=== PATIENT | female | born 1945 | race Caucasian/White ===

== ENCOUNTER 2017-11-22 02:40 | Outpatient (CLI) | payer MEDICARE, BC, SELFPAY ==
[2017-09-02 09:57] LABS: Abs Immature Grans 0.02 k/cumm (0.0-0.09); Absolute Basophil Count 0.03 k/cumm (0.0-0.2); Absolute Eosinophil Count 0.11 k/cumm (0.0-0.7); Absolute Lymphocyte Count 1.85 k/cumm (1.2-3.4); Absolute Neutrophil Count 2.96 k/cumm (1.2-6.7); Basophils % 0.5; HCT 36.1 % (36.0-46.0); HGB 12.3 g/dL (12.0-15.5); Immature Grans % 0.4; Lymphocytes % 33.8; Mean Corp. HGB Concentration 34.1 g/dL (32.0-36.0); Mean Corpuscular Hemoglobin 31.5 pg (27.0-33.0); Mean Corpuscular Volume 92.3 fL (80-95); Mean Platelet Volume 9.9 fL (8.0-11.0); Monocytes % 9.1; Neutrophils % 54.2; Platelet Count 227 x1000/uL (130-400); RBC 3.91 m/cumm (4.00-5.20); RBC Distribution Width 13.1 % (11.7-14.6); White Blood Cell Count 5.47 k/cumm (4.4-10.8)
[2017-09-02 11:04] LABS: ALT 26 U/L (12-78); AST 20 U/L (15-37); Albumin 3.8 g/dL (3.4-5.0); Alkaline Phosphatase 47 U/L (46-116); Anion Gap 8.6 mmol/L (3-11); BUN 21 mg/dL (7-18); Bilirubin, Total 0.5 mg/dL (0.2-1.0); CO2 27.4 mmol/L (21.0-32.0); Chloride 103 mmol/L (98-107); Cholesterol 175 mg/dL (50-200); Estimated GFR 54.66 (mL/min/1.73m2); Glucose 96 mg/dL (70-100); HDL Cholesterol 51 mg/dL (40-60); LDL CHOLESTEROL 96 mg/dL (<100); Potassium 3.9 mmol/L (3.5-5.1); Sodium 139 mmol/L (136-145); Total Protein 6.8 g/dL (6.4-8.2); Triglyceride 102 mg/dL (30-150)
== END 2017-11-22 03:00 ==
PROVIDERS: PCP Nurse Practitioner; Visit Provider Nurse Practitioner
DX: E78.4 Other hyperlipidemia (principal); I10 Essential (primary) hypertension
CPT/HCPCS: 36415; 80053; 80061; 83721; 85025

== ENCOUNTER 2017-11-22 12:10 | Outpatient (CLI) | payer MEDICARE, BC, SELFPAY ==
--- NOTE | 2017-11-22 08:15 | DI.MAMMO_ITS ---
SYMPTOM/DIAGNOSIS: SCREENING, Z12.31 MAMMOGRAMS: Mammograms were interpreted according to the usual protocol including computer analysis with CAD system, tomosynthesis and C view imaging. Comparison with prior examinations. Breast density B. No masses or microcalcifications are seen. There is nothing to suggest malignancy. IMPRESSION: Negative mammogram. Routine screening is recommended. Category 1 B. MQSA ASSESSMENT OF FINDINGS: Negative. Category 1. Patient will receive a letter notifying them of these results. BI-RADS category B. There are scattered areas of fibroglandular density.
== END 2017-11-22 12:30 ==
PROVIDERS: PCP Nurse Practitioner; Visit Provider Nurse Practitioner Women's Health
DX: Z12.31 Encounter for screening mammogram for malignant neoplasm of breast (principal)
CPT/HCPCS: 77063; 77067

== ENCOUNTER 2018-12-27 01:02 | Outpatient (CLI) | payer MEDICARE, BC, SELFPAY ==
--- NOTE | 2018-12-27 07:50 | DI.MAMMO_ITS ---
EXAM: MG MAMMO SCREENING CLINICAL HISTORY: screening, Z12.39 TECHNIQUE: Bilateral full field digital CC and MLO mammographic images were obtained with 3D tomosyn thesis and utilizing computer aided detection (CAD). COMPARISON: Available for comparison. FINDINGS: Masses/Architectural Distortion: None seen. Microcalcifications: No suspicious pleomorphic-type are seen. Skin Thickening/Nipple Retraction: None. IMPRESSION: 1. No significant interval change with no specific features of malignancy noted. 2. Unless there is more urgent need, screening mammography is recommended, as per [employer] guidelines. ACR BI-RAD Category- 1 Negative Breast Density - Category B - Scattered areas of fibroglandular density A negative radiographic report should not delay biopsy if a dominant or clinically suspicious mass is present. Up to ten percent of cancers are not identified on mammography. A negative report may reinforce clinical impression. Adenosis and dense breasts may obscure an underlying neoplasm. False positive reports average 6 to 10%.
== END 2018-12-27 01:22 ==
PROVIDERS: PCP Nurse Practitioner; Visit Provider Nurse Practitioner Women's Health
DX: Z12.31 Encounter for screening mammogram for malignant neoplasm of breast (principal)
CPT/HCPCS: 77063; 77067

== ENCOUNTER 2019-02-23 09:29 | Outpatient (CLI) | payer MEDICARE, BC, SELFPAY ==
[2019-02-23 10:57] LABS: ALT 30 U/L (14-59); AST 22 U/L (15-37); Albumin 3.9 g/dL (3.4-5.0); Alkaline Phosphatase 47 U/L (46-116); BUN 17 mg/dL (7-18); Bilirubin, Total 0.5 mg/dL (0.2-1.0); CREATININE 0.85 mg/dL (0.55-1.02); Calcium 9.4 mg/dL (8.5-10.1); Calculated LDL 68 mg/dL; Chloride 102 mmol/L (98-107); Cholesterol 152 mg/dL (<200); Glucose 81 mg/dL (74-106); HDL Cholesterol 64 mg/dL (40-60); Sodium 141 mmol/L (136-145); Total Protein 6.9 g/dL (6.4-8.2); Triglyceride 101 mg/dL (<150)
== END 2019-02-23 09:49 ==
PROVIDERS: PCP Nurse Practitioner; Visit Provider Nurse Practitioner
DX: E78.5 Hyperlipidemia, unspecified (principal); I10 Essential (primary) hypertension
CPT/HCPCS: 36415; 80053; 80061

== ENCOUNTER 2020-06-04 03:32 | Outpatient (CLI) | payer MEDICARE, BC, SELFPAY ==
[2020-06-04 08:02] LABS: HGB 12.6 g/dL (11.2-15.7); MCHC 34.1 % (32.0-36.0); MCV 93.9 fL (80-95); MPV 9.3 fL (8.0-11.0); Platelet Count 214 10^3/uL (130-400); RBC 3.94 10^6/uL (3.93-5.22); RDW 12.1 % (11.7-14.6); RDW-SD 42.1 fL
--- NOTE | 2020-06-04 08:45 | DI.MAMMO_ITS ---
EXAM: MAMMO SCREENING CLINICAL HISTORY: screening,Z12.39 TECHNIQUE: Mammograms were interpreted according to the usual protocol including computer analysis w [employer] [facility] CAD system, tomosynthesis and C-view imaging. COMPARISON: 2010 through 2018 FINDINGS: The breasts are composed of scattered fibroglandular densities, Breast Density category B. No suspicious masses or suspicious microcalcifications are seen. Vascular calcifications and scatter ed coarse, benign calcifications are again noted. No skin thickening or abnormal axillary lymph nodes are seen. There has been no significant change from prior exams. IMPRESSION: BI-RADS Category 2 - Benign Findings Yearly screening mammography is recommended. Breast Density - Category B, scattered fibroglandular densities. A negative radiographic report should not delay biopsy if a dominant or clinically suspicious mass is present. Up to ten percent of cancers are not identified on mammography. A negative report may reinforce clinical impression. Adenosis and dense breasts may obscure an underlying neoplasm. False positive reports average 6 to 10%. Patient will receive a letter notifying them of these results.
[2020-06-04 09:07] LABS: ALT 25 U/L (14-59); AST 20 U/L (15-37); Albumin 4.1 g/dL (3.4-5.0); Alkaline Phosphatase 50 U/L (46-116); Anion Gap 9.2 mmol/L (3-11); BUN 18 mg/dL (7-18); Bilirubin, Total 0.6 mg/dL (0.2-1.0); CO2 30.8 mmol/L (21.0-32.0); CREATININE 0.9 mg/dL (0.55-1.02); Calcium 9.8 mg/dL (8.5-10.1); Calculated LDL 59 mg/dL (<100); Chloride 101 mmol/L (98-107); Cholesterol 151 mg/dL (<200); Glucose 95 mg/dL (74-106); HDL Cholesterol 74 mg/dL (40-60); Potassium 4.3 mmol/L (3.5-5.1); Sodium 141 mmol/L (136-145); Total Protein 7.1 g/dL (6.4-8.2); Triglyceride 93 mg/dL (<150)
== END 2020-06-04 03:33 | disposition home or self-care (01) ==
PROVIDERS: PCP Nurse Practitioner; Visit Provider Nurse Practitioner
DX: Z12.31 Encounter for screening mammogram for malignant neoplasm of breast (principal); E78.5 Hyperlipidemia, unspecified; I10 Essential (primary) hypertension
CPT/HCPCS: 36415; 77063; 77067; 80053; 80061; 85027

== ENCOUNTER 2020-09-04 01:39 | Outpatient (CLI) | payer MEDICARE, BC, SELFPAY ==
--- NOTE | 2020-09-04 10:15 | DI.DEXA_ITS ---
Exam(s) XR DEXA BONE DENSITY W/WO DUYEN EXAM: XR DEXA BONE DENSITY W/WO DUYEN CLINICAL HISTORY: f/u 2014 M85.88 OSTEOPENIA TECHNIQUE: [employer] Horizon C densitometer COMPARISON: DX DEXA BONE DENSITY WITH DUYEN from 10/03/2014 DX DEXA BONE DENSITY WITH DUYEN from 10/03/2014 FINDINGS: Lateral view of the thoracic and lumbar spine shows no evidence of compression fractures. Bone mineral density measurements of the lumbar spine correspond to a total T-score of -0.7, in the n ormal range. Unchanged from previous. Bone mineral density measurements of the left hip correspond to a total T-score of 0.3. The femoral neck T-score is 0.1, in the normal range. 4.4 percent decrease in total hip bone density from 2015 . The left forearm bone mineral density measurements correspond to a T-score of the distal 3rd of -2.3 , in the osteopenic range. Mild but not statistically significant decrease of 2 percent. IMPRESSION: Osteopenia of the forearm. Normal bone mineral density of the lumbar spine and left hip.
== END 2020-09-04 01:59 ==
PROVIDERS: PCP Nurse Practitioner; Visit Provider Nurse Practitioner
DX: M85.832 Other specified disorders of bone density and structure, left forearm (principal)
CPT/HCPCS: 77080

== ENCOUNTER 2021-02-19 09:44 | Outpatient (CLI) | payer MEDICARE, BC, SELFPAY ==
--- NOTE | 2021-02-19 09:30 | RT.EKG_ITS ---
APPROVED REPORT Exam: Resting ECG Reason for Exam: HTN Patient Location: O HR:78 bpm ECG Measurements Heart Rate 78 AXIS MN 138 P 51 QRSd 90 QRS 6 QT 402 T 5 QTc 459 Conclusion Sinus rhythm...normal P axis, V-rate 60- 99 Left atrial enlargement...P, P'>60mS, <-0.15mV V1
== END 2021-02-19 09:45 | disposition home or self-care (01) ==
LOC: DI.KIM 09:44
PROVIDERS: PCP Nurse Practitioner; Visit Provider Nurse Practitioner
DX: I10 Essential (primary) hypertension (principal); I51.7 Cardiomegaly
CPT/HCPCS: 93010

== ENCOUNTER 2021-06-22 02:41 | Outpatient (CLI) | payer MEDICARE, SELFPAY ==
--- NOTE | 2021-06-22 06:45 | DI.MAMMO_ITS ---
Exam(s) MAMMO SCREENING EXAM: MAMMO SCREENING CLINICAL HISTORY: screening,Z12.39 TECHNIQUE: Bilateral full field digital CC and MLO mammographic images were obtained with 3D tomosyn thesis and utilizing computer aided detection (CAD). COMPARISON: Available for comparison. FINDINGS: Masses/Architectural Distortion: None seen. There is a biopsy clip in the inner right breast. Microcalcifications: No suspicious pleomorphic-type are seen. Skin Thickening/Nipple Retraction: None. IMPRESSION: 1. No significant interval change with no specific features of malignancy noted. 2. Unless there is more urgent need, screening mammography is recommended, as per [employer] guidelines. BI-RADS Category 1 - Negative Breast Density - Category B - Scattered areas of fibroglandular density Breast density category C or D implies that the patient has dense breast tissue. Dense breast tissue is very common and is not abnormal but dense breast tissue can make it harder to find cancer on a ma mmogram. Also, dense breast tissue may increase their breast cancer risk. This information about the result of the mammogram report was provided to the patient to raise their awareness. Use this report when you speak with the patient about their risks for breast cancer, which includes their family hist ory. At that time, you may recommend for more screening tests (Ultrasound or MRI) as they might be us eful based on their risk. A negative radiographic report should not delay biopsy if a dominant or clinically suspicious mass is present. Up to ten percent of cancers are not identified on mammography. A negative report may reinforce clinical impression. Adenosis and dense breasts may obscure an underlying neoplasm. False positive reports average 6 to 10%. Patient will receive a letter notifying them of these results.
== END 2021-06-22 03:01 ==
PROVIDERS: PCP Nurse Practitioner; Visit Provider Nurse Practitioner
DX: Z12.31 Encounter for screening mammogram for malignant neoplasm of breast (principal)
CPT/HCPCS: 77063; 77067

== ENCOUNTER 2021-06-22 05:10 | Outpatient (CLI) | payer MEDICARE, SELFPAY ==
[2021-06-22 10:26] LABS: ALT 32 U/L (14-59); AST 27 U/L (15-37); Albumin 4.1 g/dL (3.4-5.0); Alkaline Phosphatase 59 U/L (46-116); BUN 16 mg/dL (7-18); Bilirubin, Total 0.7 mg/dL (0.2-1.0); CREATININE 0.8 mg/dL (0.55-1.02); Calcium 9.2 mg/dL (8.5-10.1); Calculated LDL 96 mg/dL (<100); Chloride 99 mmol/L (98-107); Cholesterol 186 mg/dL (<200); Glucose 95 mg/dL (74-106); HDL Cholesterol 75 mg/dL (40-60); Potassium 3.9 mmol/L (3.5-5.1); Sodium 133 mmol/L (136-145); Total Protein 7.2 g/dL (6.4-8.2); Triglyceride 79 mg/dL (<150)
== END 2021-06-22 05:11 | disposition home or self-care (01) ==
LOC: LBO 05:10
PROVIDERS: PCP Nurse Practitioner; Visit Provider Nurse Practitioner
DX: I10 Essential (primary) hypertension (principal); E78.5 Hyperlipidemia, unspecified
CPT/HCPCS: 36415; 80053; 80061

== ENCOUNTER 2021-07-05 14:43 | Observation (INO) | payer MEDICARE, SELFPAY ==
[2021-07-05] VITALS (54 sets, daily range): BP systolic 123–185; BP diastolic 58–93; PULSE 67–153; RESP 9–22; TEMP 36.3–36.7; O2SAT 95–100
--- NOTE | 2021-07-05 14:45 | RT.EKG_ITS ---
APPROVED REPORT Exam: Resting ECG Reason for Exam: heart rate irregular Patient Location: E HR:148 bpm ECG Measurements Heart Rate 148 AXIS ME 112 P 73 QRSd 89 QRS 4 QT 300 T -77 QTc 470 Conclusion Supraventricular tachycardia...V-rate>(220-age), QRSd<120 ST elevation secondary to high heart rate Nonspecific T abnormalities, lateral leads...T <-0.10mV, I aVL V5 V6. SVT
--- NOTE | 2021-07-05 15:00 | DI.RAD_ITS ---
Exam(s) XR PORTABLE CHEST AP EXAM: XR PORTABLE CHEST AP CLINICAL HISTORY: palpitations, r/o acute disease TECHNIQUE: 2D digital imaging was performed. COMPARISON: CR XR DEXA BONE DENSITY W/WO DUYEN from 09/04/2020 FINDINGS: Exam limited by multiple leads overlying the chest. LUNGS: Clear. No pleural abnormality seen. HEART: Normal size. Mitral annular calcifications.. AORTA: Normal. BONES: Unremarkable for age. Soft tissues: Calcific density projecting at medial left lung base could represent calcified granulom a or soft tissue calcification. IMPRESSION: No acute findings. DATA REPOSITORY: RADIATION DOSE DELIVERED:
--- NOTE | 2021-07-05 15:02 | ED.GENADUL_ITS ---
Discharge Plan Disposition Patient Disposition: [facility] INPATIENT Condition: Good Discharge Details Clinical Impression: SVT (supraventricular tachycardia), Elevated troponin Admit Date/Time: 07/05/21 19:53 Admit Provider: Pablo Ma Attending Provider: Pablo Ma Primary Care Provider: Yvonne Gutierrez ED Provider: Lisa Chatterjee Discharge Data Discharge Date/Time-TO BE ENTERED AT DEPARTURE: 07/05/21 21:02 Medical Decision Making 1455 -- 76yo F presents with sensation of tachycardia and palpitations since this morning. Denies any chest pain, shortness of breath or dizziness. Blood pressure on arrival 177/91. Heart rate 140s to 150s. EKG notes SVT. Attempted modified Valsalva maneuver x 2 without response. 1530 -- patient given a total of 6 mg + 12 mg + 12 mg of adenosine IV without any response. She remains in the 150s and SVT on the monitor. She remains asymptomatic. Discussed with hospitalist team who recommends Cardizem or metoprolol IV. [facility] cardiology consulted. 1545 -- patient now converted to sinus rhythm within a few minutes of Cardizem 50 mg IV push x1. Heart rate 80s to 90s. 1600 -- discussed with [facility] cardiology -- recommend starting Cardizem ER p.o. 180 mg once daily. Recommend outpatient Zio patch and follow-up with cardiology. They recommend observation overnight for serial troponins and EKGs if her troponin is elevated but would not be surprised if her troponin is elevated due to her SVT likely occurring over 8-hour period. 1645 -- labs reviewed. Normal white blood cell count and hemoglobin. Potassium 3.3, will replete. Troponin 119. Case discussed with Dr. Nava who recommends follow-up on repeat troponin and if significantly elevated may need further discussion with cardiology. 1845 --repeat troponin 275. Repeat EKG notes a rate of 74, sinus, no STEMI. Patient has remained hemodynamically stable, heart rate 70s in sinus on the monitor. Blood pressure 146/85. Patient is agreeable with plan for admission for continued telemetry monitoring, serial troponins and EKGs. Case discussed with hospitalist who accepts patient for admission. Medical Records Medical records reviewed: Yes I reviewed the patient's medical records. Imaging Data Radiologic Study: Radiologist's impression: XR Chest Exam date and time: 07/05/2021 4:18 PM Age: 76 years old Clinical indication: Other: Palpitations, R/O acute disease TECHNIQUE: Imaging protocol: XR of the chest. Views: 1 view. COMPARISON: No relevant prior studies available. FINDINGS: Lungs: There is a 1.5 cm nodular calcific density projecting at the medial base of the left lung adjacent to the thoracic spine. The lungs are otherwise clear. There is no pulmonary vascular congestion. Pleural spaces: There are no pleural effusions present. There is no evidence of pneumothorax. Heart/Mediastinum: The cardiomediastinal silhouette is within normal limits. Bones/joints: See Lungs finding. IMPRESSION: 1. No active cardiopulmonary disease identified. 2. 1.5 cm calcific nodular density projecting at the medial base of the left lung, could represent confluence of osseous shadows versus a benign calcified granuloma. Lab Data Lab results reviewed: Yes I reviewed the patient's lab results. Labs: Laboratory Tests Range/Units 07/05/21 07/05/21 07/05/21 14:58 14:58 18:00 WBC (4.4-10.8) 10^3/uL 6.55 RBC (3.93-5.22) 10^6/uL 4.34 Hgb (11.2-15.7) g/dL 13.5 Hct (36.0-46.0) % 40.1 MCV (80-95) fL 92 MCH (27.0-33.0) pg 31.1 MCHC (32.0-36.0) % 33.7 RDW (11.7-14.6) % 11.8 Plt Count (130-400) 10^3/uL 224 MPV (8.0-11.0) fL 10.0 Immature Gran % 0.3 Neutrophils % 64.8 Lymphocytes % 23.2 Monocytes % 9.5 Eosinophils % 1.4 Basophils % 0.8 Nucleated RBC % (0.0-0.3) % 0.0 Absolute Neutrophils (1.2-6.7) 10^3/uL 4.25 Absolute Lymphocytes (1.2-3.4) 10^3/uL 1.52 Absolute Monocytes (0.1-0.8) 10^3/uL 0.62 Absolute Eosinophils (0.0-0.7) 10^3/uL 0.09 Absolute Basophils (0.0-0.2) 10^3/uL 0.05 Sodium (136-145) mmol/L 132 L Potassium (3.5-5.1) mmol/L 3.3 L Chloride (98-107) mmol/L 95 L Carbon Dioxide (21.0-32.0) mmol/L 27.6 Anion Gap (3-11) mmol/L 9.4 BUN (7-18) mg/dL 13 Creatinine (0.55-1.02) mg/dL 0.9 Estimated GFR/1.73 m2 (mL/min/1.73m2) >= 60.00 Glucose (74-106) mg/dL 151 H Calcium (8.5-10.1) mg/dL 9.4 Magnesium (1.8-2.4) mg/dL 2.1 Total Bilirubin (0.2-1.0) mg/dL 0.6 AST (15-37) U/L 24 ALT (14-59) U/L 31 Alkaline Phosphatase (46-116) U/L 55 Troponin I (<or=60) ng/L 119 H* 275 H* Total Protein (6.4-8.2) g/dL 7.7 Albumin (3.4-5.0) g/dL 4.1 ECG Data Attestation: I personally reviewed and interpreted this ECG (s) as follows: Interpretation: #1 -- Rate of 148, SVT #2 --Rate of 74, sinus, no STEMI HPI General Mode of arrival: ambulatory . Date/Time Provider Initiated Documentation: 07/05/21 14:44 . Limitations to Documentation: no limitations . Information obtained by: patient . HPI Narrative: Patient is a 76-year-old female with history of hypertension who presents with sensation of tachycardia and palpitations since this morning. Patient stated she looked at a text on her phone and felt a fast heart rate. She denies any significant stress or anxiety. She states she had a sensation of tachycardia this morning but denies any symptoms at present. She denies any chest pain, shortness of breath, fever, cough, vomiting, diarrhea or any recent illness. Related Data Home Medications Medication Instructions Recorded Confirmed calcium carbonate 250 mg-vitamin 1 ea PO DAILY 08/14/15 07/05/21 D3 3.125 mcg (125 unit) tablet (Oyster Shell + D3) aspirin 81 mg tablet,delayed 81 mg PO DAILY #100 tab 06/22/18 07/05/21 release fluocinolone 0.01 % topical 1 applic TOPICAL BID #60 ml 02/20/19 07/05/21 solution atorvastatin 20 mg tablet 20 mg PO QPM #90 tab 02/19/21 07/05/21 cholecalciferol (vitamin D3) 125 125 mcg PO DAILY 02/19/21 07/05/21 mcg (5,000 unit) capsule lisinopril 20 1 tab PO DAILY #90 tab 02/19/21 07/05/21 mg-hydrochlorothiazide 25 mg tablet potassium chloride 10 mEq 10 meq PO DAILY #90 tab 02/19/21 07/05/21 tablet,extended release (Klor-Con) diltiazem HCl 120 mg 120 mg PO HS #14 cap 07/06/21 capsule,extended release 24 hr (Cardizem CD) Previous Rx's Medication Instructions Recorded aspirin 81 mg tablet,delayed 81 mg PO DAILY #100 tab 06/22/18 release fluocinolone 0.01 % topical 1 applic TOPICAL BID #60 ml 02/20/19 solution atorvastatin 20 mg tablet 20 mg PO QPM #90 tab 02/19/21 lisinopril 20 1 tab PO DAILY #90 tab 02/19/21 mg-hydrochlorothiazide 25 mg tablet potassium chloride 10 mEq 10 meq PO DAILY #90 tab 02/19/21 tablet,extended release (Klor-Con) diltiazem HCl 120 mg 120 mg PO HS #14 cap 07/06/21 capsule,extended release 24 hr (Cardizem CD) Allergies Allergy/AdvReac Type Severity Reaction Status Date / Time No Known Allergies Allergy Verified 07/05/21 15:00 General Stated Complaint: Palpitatns ED: 2 Review of Systems All systems reviewed & are unremarkable except as noted in HPI and below Constitutional Constitutional: Denies chills, Denies excessive sweating, Denies fatigue, Denies fever(s), Denies weakness and Denies weight loss Eyes Eyes: Reports system reviewed and no additional complaints, except as documented and Denies blurry vision ENT Ears, Nose, Mouth, and Throat: Denies vertigo, Denies dizziness, Denies otalgia, Denies nasal congestion, Denies sore throat and Denies throat swelling Cardiovascular Cardiovascular: Denies chest pain, Denies syncope, Reports rapid heart rate and Denies dyspnea Respiratory Respiratory: Denies chest congestion, Denies cough, Denies pain on inspiration and Denies dyspnea Gastrointestinal Gastrointestinal: Denies abdominal pain, Denies diarrhea and Denies vomiting Genitourinary Genitourinary: Denies hematuria, Denies dysuria and Denies flank pain Musculoskeletal Musculoskeletal: Denies back pain and Denies joint swelling Integumentary/Breasts Skin/Breast: Denies lesions and Denies rash Neurologic Neurologic: Denies behavioral changes, Denies confusion, Denies vertigo, Denies dizziness, Denies syncope, Denies localized weakness and Denies weakness Psychiatric Psychiatric: Denies behavioral changes, Denies confusion and Denies depression Endocrine Endocrine: Denies excessive sweating and Denies fatigue Hematologic/Lymphatic Hematologic/Lymphatic: Denies easy bruising and Denies lymphadenopathy Allergic/Immunologic Allergic/Immunologic: Denies throat swelling PFSH All Active Problems (Updated 07/07/21 @ 00:05 by SAMMI JACOBSEN) Osteopenia of lumbar spine (Acute) Medicare annual wellness visit, subsequent (Acute) Other hyperlipidemia (Acute 06/26/05) GOAL LDL<130; 2014 risk calc 12.3%; ASA and Atorvastatin begun 08/2014 Osteopenia (Acute 10/04/14) DEXA 10/03/14 T = -2.7 L wrist, all others 0.7 or better; FRAX score: 8 phil, 0.6 hip Mitral valve regurgitation (Acute 06/04/13) mod on ECHO 06/24/10; rpt 07/03/13: mild MR, nl EF 65% Hypertension (Acute 12/29/91) Hyperplastic colonic polyp (Acute 01/02/16) dr Velazquez Other and unspecified hyperlipidemia (Acute 06/26/05) GOAL LDL<130; 2014 risk calc 12.3% Colon cancer screening (Acute) Medical History HTN (hypertension) Hx of hyperlipidemia Vitiligo (06/01/11) Surgical History Colonoscopy - IV Sedation (01/02/16) No significant past surgical history Family History Mother , heart issues at age 86. Essential hypertension Heart disease Anxiety Father , CVA at age 70. Stroke Hypertension Social History Smoking/Tobacco Use Status: Former Tobacco Use Tobacco: How many years used: 25 Second Hand Exposure: No Smoking risk assessment performed?: Yes Alcohol Intake: current Alcohol Intake frequency: 0-2 drinks per day Drug use: Never Substance use type: does not use Adopted: No Caregiver/Support person: No Foster care: No Household members: spouse Housing: house Number of Children: 2 number of grandchildren: 4 Communication Needs: Corrective Lenses Education Level: college Do you need help understanding health information?: Rarely current occupation: retired Pets and animals: No Sexually active: No Do you think of yourself as: straight/heterosexual Current gender identity: female What is your relationship status?: living with partner How often do you talk on the phone with friends or family?: twice per week How often do you get together with friends or relatives?: three or more times per week Do you belong to any clubs or organized social groups?: yes Panel score (0-1 are the most socially isolated patients): 3 What type of physical activity do you participate in: walking Duration: 15-30 minutes/day Frequency: 5-6 times per week Padmini/Buddhism: Evangelical Seatbelt use: always Drive intox or ride w/intox delivery truck driver heavy: No Working smoke detector in home: Yes Fire extinguisher in home: Yes Carbon monox detector in home: Yes Do you feel safe at home: Yes Do you feel safe in your relationship?: Yes Exam Const General: cooperative Orientation: alert, awake and oriented x3 HENMT Head: normal to inspection Ears: hearing grossly normal bilaterally, external ears normal and TM's normal bilaterally General nose exam: external nose normal Face and sinus: normal facial exam Mouth: oral mucosae normal Teeth and gingiva: dentition normal Throat: posterior oropharynx normal Eyes General: appearance normal, both eyes and all related structures Eyelids: eyelids normal Pupils: PERRL EOM: EOM intact bilaterally Neck Neck: normal visual inspection Lymphatic: no lymphadenopathy noted Chest Chest: normal inspection of the chest Resp Effort & Inspection: normal respiratory effort and able to speak in complete sentences Auscultation: clear to auscultation bilaterally Cardio Rate: tachycardic Rhythm: regular rhythm GI Inspection: normal to inspection Palpation: soft, not firm, no guarding, no hepatosplenomegaly, no masses and nontender Auscultation: normal bowel sounds Skin General skin exam: no rashes or lesions noted Neuro General: patient alert and patient awake Cognition: normal cognition Speech: speech normal Gait: normal gait Motor: muscle tone normal throughout Sensory Exam: no sensory deficits noted Extrem General: normal to inspection, full ROM and capillary refill normal Psych Appearance: grossly normal Mental Status: mental status grossly normal Speech and Movement: speech and movement normal Affect: normal affect Thought Process: normal Course Vital Signs Vital signs: Vital Signs Temperature 98.1 F 07/05/21 14:53 Pulse 149 H 07/05/21 14:53 Respiratory Rate 16 07/05/21 14:53 Blood Pressure 177/91 H 07/05/21 14:53 Pulse Oximetry 98 07/05/21 14:53 Temperature 98.1 F 07/05/21 14:53 Temperature Source Temporal Artery Scan 07/05/21 14:53 Pulse 149 H 07/05/21 14:53 Respiratory Rate 16 07/05/21 14:53 Blood Pressure 177/91 H 07/05/21 14:53 Blood Pressure Position Supine 07/05/21 14:53 Pulse Oximetry 98 07/05/21 14:53 Pain Level 0 07/05/21 14:53
[2021-07-05] MEDS: Adenosine 6 MG/2 ML VIAL IVP (15:27)
[2021-07-05] MEDS: Adenosine 6 MG/2 ML VIAL 12 MG IVP ×2 (15:30→15:37)
[2021-07-05] MEDS: dilTIAZem 25 MG/5 ML VIAL 15 MG IVP (15:49)
[2021-07-05 16:16] LABS: Abs Immature Grans 0.02 10^3/uL (0.0-0.06); Absolute Basophil Count 0.05 10^3/uL (0.0-0.2); Absolute Eosinophil Count 0.09 10^3/uL (0.0-0.7); Absolute Lymphocyte Count 1.52 10^3/uL (1.2-3.4); Absolute Monocyte Count 0.62 10^3/uL (0.1-0.8); Absolute Neutrophil Count 4.25 10^3/uL (1.2-6.7); Basophils % 0.8; Eosinophils % 1.4; HCT 40.1 % (36.0-46.0); HGB 13.5 g/dL (11.2-15.7); Immature Grans % 0.3; Lymphocytes % 23.2; MCH 31.1 pg (27.0-33.0); MCHC 33.7 % (32.0-36.0); MCV 92 fL (80-95); Monocytes % 9.5; Neutrophils % 64.8; Platelet Count 224 10^3/uL (130-400); RBC 4.34 10^6/uL (3.93-5.22); RDW 11.8 % (11.7-14.6); WBC 6.55 10^3/uL (4.4-10.8)
[2021-07-05 16:36] LABS: ALT 31 U/L (14-59); AST 24 U/L (15-37); Albumin 4.1 g/dL (3.4-5.0); Alkaline Phosphatase 55 U/L (46-116); Anion Gap 9.4 mmol/L (3-11); BUN 13 mg/dL (7-18); Bilirubin, Total 0.6 mg/dL (0.2-1.0); CO2 27.6 mmol/L (21.0-32.0); CREATININE 0.9 mg/dL (0.55-1.02); Calcium 9.4 mg/dL (8.5-10.1); Chloride 95 mmol/L (98-107); Glucose 151 mg/dL (74-106); Magnesium 2.1 mg/dL (1.8-2.4); Potassium 3.3 mmol/L (3.5-5.1); Sodium 132 mmol/L (136-145); Total Protein 7.7 g/dL (6.4-8.2)
[2021-07-05 16:47] LABS: Troponin I 119 ng/L (<or=60)
[2021-07-05] MEDS: Potassium Chloride 20 MEQ TABCR PO (16:53)
--- NOTE | 2021-07-05 17:10 | DI.VRAD_ITS ---
PROCEDURE INFORMATION: Exam: XR Chest Exam date and time: 07/05/2021 4:18 PM Age: 76 years old Clinical indication: Other: Palpitations, R/O acute disease TECHNIQUE: Imaging protocol: XR of the chest. Views: 1 view. COMPARISON: No relevant prior studies available. FINDINGS: Lungs: There is a 1.5 cm nodular calcific density projecting at the medial base of the left lung adjacent to the thoracic spine. The lungs are otherwise clear. There is no pulmonary vascular congestion. Pleural spaces: There are no pleural effusions present. There is no evidence of pneumothorax. Heart/Mediastinum: The cardiomediastinal silhouette is within normal limits. Bones/joints: See Lungs finding. IMPRESSION: 1. No active cardiopulmonary disease identified. 2. 1.5 cm calcific nodular density projecting at the medial base of the left lung, could represent confluence of osseous shadows versus a benign calcified granuloma. Dictated and Authenticated by: Johnny Boston MD. Ordering:PEDRITO Gonzalez MD
--- NOTE | 2021-07-05 18:00 | RT.EKG_ITS ---
APPROVED REPORT Exam: Resting ECG Reason for Exam: palpitations Patient Location: E HR:74 bpm ECG Measurements Heart Rate 74 AXIS WY 157 P 46 QRSd 80 QRS 0 QT 412 T 8 QTc 458 Conclusion Sinus rhythm...normal P axis, V-rate 60- 99 Probable left atrial enlargement...P >50mS, <-0.10mV V1. Sinus. No STEMI. I have reviewed and interpreted ECG and agree with software generated interpretation.
[2021-07-05 18:41] LABS: Troponin I 275 ng/L (<or=60)
--- NOTE | 2021-07-05 19:33 | HPE_ITS ---
Date of service: 07/05/21 Time of Service: 19:33 Assessment and Plan Assessment and plan (1) SVT (supraventricular tachycardia): Status: Chronic Assessment and plan: PSVT. No definite precipitant at present, though mild hypokalemia may have played a role, in setting of known structural heart disease. Will begin Cardizem 180 CD (hold other hypertensives until we see how she responds) and trend trops. No doubt this is demand ischemia. Will also update ECHO and check TSH. Reveiwed ADs, requests Full Code History of Present Illness History of Present Illness Chief Complaint: palpitations Narrative: 76 female re[orts sudden onset palpitations this morning. No associated CP or SOB. Took pulse, in 130s on home BP monitor. Reesolved after some unspecified period, but repeated pulse checks through the day showed range 140-150, though otherwise asymptomatic, but decided to come to ER. In ER, SVT 150 noted. No effect with Adenosine x 3, then converted with 50 IV Cardizem. Trop 119 the 275. reviewed with Cardiology, presumed demand ischemia, advised trend trops and begin oral Cardizem. K 3.3 noted, given 20 PO. On diuretic for HTN, on chronic K supplementation. Limited caffeine, one drink per night. Has never had thyroid testing to her knowledge. Does have h/o mitral regurgitation,last ECHO 2013 2+ MR. Reports many years of spells similar to today's, but brief, and has never documented tachycardia, just has a funny stress feeling in chest. Further, reports COVID booster 2 days ago. Review of Systems Narrative: per HPI PFSH All Active Problems (Updated 07/05/21 @ 19:44 by Lisa Chatterjee DO) SVT (supraventricular tachycardia) (Chronic) Elevated troponin (Acute) Osteopenia of lumbar spine (Acute) Medicare annual wellness visit, subsequent (Acute) Other hyperlipidemia (Acute 06/26/05) GOAL LDL<130; 2015 risk calc 12.3%; ASA and Atorvastatin begun 08/2014 Osteopenia (Acute 10/04/14) DEXA 10/03/14 T = -2.7 L wrist, all others 0.7 or better; FRAX score: 8 phil, 0.6 hip Mitral valve regurgitation (Acute 06/04/13) mod on ECHO 06/24/10; rpt 07/03/13: mild MR, nl EF 65% Hypertension (Acute 12/29/91) Hyperplastic colonic polyp (Acute 01/02/16) dr Velazquez Other and unspecified hyperlipidemia (Acute 06/26/05) GOAL LDL<130; 2015 risk calc 12.3% Colon cancer screening (Acute) Medical History HTN (hypertension) Hx of hyperlipidemia Vitiligo (06/01/11) Surgical History Colonoscopy - IV Sedation (01/02/16) No significant past surgical history Family History Mother , heart issues at age 86. Essential hypertension Heart disease Anxiety Father , CVA at age 70. Stroke Hypertension Social History Smoking/Tobacco Use Status: Former Tobacco Use Tobacco: How many years used: 25 Second Hand Exposure: No Smoking risk assessment performed?: Yes Alcohol Intake: current Alcohol Intake frequency: 0-2 drinks per day Drug use: Never Substance use type: does not use Adopted: No Caregiver/Support person: No Foster care: No Household members: spouse Housing: house Number of Children: 2 number of grandchildren: 4 Communication Needs: Corrective Lenses Education Level: college Do you need help understanding health information?: Rarely current occupation: retired Pets and animals: No Sexually active: No Do you think of yourself as: straight/heterosexual Current gender identity: female What is your relationship status?: living with partner How often do you talk on the phone with friends or family?: twice per week How often do you get together with friends or relatives?: three or more times per week Do you belong to any clubs or organized social groups?: yes Panel score (0-1 are the most socially isolated patients): 3 What type of physical activity do you participate in: walking Duration: 15-30 minutes/day Frequency: 5-6 times per week Padmini/Alevism: Voodoo Seatbelt use: always Drive intox or ride w/intox drivers license examiner: No Working smoke detector in home: Yes Fire extinguisher in home: Yes Carbon monox detector in home: Yes Do you feel safe at home: Yes Do you feel safe in your relationship?: Yes Meds Allergies and Home Medications Allergies Allergy/AdvReac Type Severity Reaction Status Date / Time No Known Allergies Allergy Verified 07/05/21 15:00 Home Medications Medication Instructions Recorded Confirmed Type calcium carbonate 250 mg-vitamin 1 ea PO DAILY 08/14/15 07/05/21 History D3 3.125 mcg (125 unit) tablet (Oyster Shell + D3) aspirin 81 mg tablet,delayed 81 mg PO DAILY #100 tab 06/22/18 07/05/21 Rx release fluocinolone 0.01 % topical 1 applic TOPICAL BID #60 ml 02/20/19 07/05/21 Rx solution atorvastatin 20 mg tablet 20 mg PO QPM #90 tab 02/19/21 07/05/21 Rx cholecalciferol (vitamin D3) 125 125 mcg PO DAILY 02/19/21 07/05/21 History mcg (5,000 unit) capsule lisinopril 20 1 tab PO DAILY #90 tab 02/19/21 07/05/21 Rx mg-hydrochlorothiazide 25 mg tablet potassium chloride 10 mEq 10 meq PO DAILY #90 tab 02/19/21 07/05/21 Rx tablet,extended release (Klor-Con) Exam Narrative Exam Narrative: 146/85, 71, 36.7, 18, 96% RA. HEENT atraumatic; neck supple; JVP approx 4 cm. Lungs clear;heart RRR 2/6 sys murmur best LSB with radiation to jugular notch; abdomen soft and NT; extremities w/o edema, pulse 2+/=; neuro Ox43, lucid, moves all 4s Results Labs Result diagrams: 07/05/21 14:58 07/05/21 14:58 Labs: Laboratory Results - last 24 hr 07/05/21 07/05/21 07/05/21 14:58 14:58 18:00 WBC 6.55 RBC 4.34 Hgb 13.5 Hct 40.1 MCV 92 MCH 31.1 MCHC 33.7 RDW 11.8 Plt Count 224 MPV 10.0 Immature Gran % 0.3 Neutrophils % 64.8 Lymphocytes % 23.2 Monocytes % 9.5 Eosinophils % 1.4 Basophils % 0.8 Nucleated RBC % 0.0 Absolute Neutrophils 4.25 Absolute Lymphocytes 1.52 Absolute Monocytes 0.62 Absolute Eosinophils 0.09 Absolute Basophils 0.05 Sodium 132 L Potassium 3.3 L Chloride 95 L Carbon Dioxide 27.6 Anion Gap 9.4 BUN 13 Creatinine 0.9 Estimated GFR/1.73 m2 >= 60.00 Glucose 151 H Calcium 9.4 Magnesium 2.1 Total Bilirubin 0.6 AST 24 ALT 31 Alkaline Phosphatase 55 Troponin I 119 H* 275 H* Total Protein 7.7 Albumin 4.1 Last Vital Signs Temp 36.7 C 07/05/21 14:53 Pulse 71 07/05/21 19:16 Resp 18 07/05/21 19:16 BP 146/85 H 07/05/21 19:16 Pulse Ox 96 07/05/21 19:16 PAWSS Have you Been Recently Intoxicated or Drunk Within the Last 30 days?: No Have you Ever Experienced Previous Episodes of Alcohol Withdrawal?: No Have you ever Experienced Withdrawal Seizures?: No Have you ever Experienced Delirium Tremens(DT)s?: No Have you ever undergone Alcohol Rehabilitation Treatment (i.e, inpt ot outpatient treatment programs)?: No Have you ever Experienced Blackouts?: No Have you ever Combined Alcohol with other Downers within the last 90 days?: No Have you ever Combined Alcohol with any other Substance of Abuse during the last 90 days?: No Positive Blood Alcohol level on Presentation? [PCS.BAL]: No Evidence of Increased Autonomic Activity (i.e. HR>120, tremor, sweating, agitation, nausea)?: No Result: 0
[2021-07-05 20:27] LABS: Source Nasal/Nares
[2021-07-05] MEDS: dilTIAZem CD 180 MG CAPCR PO (21:16)
[2021-07-05 21:23] LABS: COVID-19 PCR Negative (Negative)
[2021-07-05 21:24] LABS: Troponin I 305 ng/L (<or=60)
[2021-07-06] VITALS: PULSE 68
--- NOTE | 2021-07-06 | DI.US_ITS ---
APPROVED REPORT EXAM: Comprehensive 2D, Doppler, and color-flow Echocardiogram Patient Location: In-Patient Room/Bed: [facility] Checkerer Hand: Zakia Condon RDCS (AE) Indications: PSVT, Mitral Regurgitation Other Information Study Quality: Adequate Conclusion Normal left ventricular wall thickness and chamber size. Estimated ejection fraction is 60 to 65%. Wall motion is normal The right ventricle is normal in size and systolic function Both atria are normal in size Aortic valve is calcified with mild regurgitation. No aortic stenosis Mitral annular calcification. Mild to moderate mitral regurgitation Normal tricuspid valve with mild to moderate regurgitation. Estimated right ventricular systolic pre ssure is 29 mmHg Mildly dilated ascending aorta measuring 3.46 cm Wall motion Left Ventricle The left ventricle is normal size. The left ventricular systolic function is normal. The left ventric ular ejection fraction is within the normal range. There is normal left ventricular wall thickness. T here is normal LV segmental wall motion. There is no ventricular septal defect visualized. LVEF is 60 -65%. Right Ventricle The right ventricle is normal size. The right ventricular systolic function is normal. The RVSP is 29 .4mmHg. Atria The left atrium size is normal. The right atrium size is normal. The interatrial septum is intact wit h no evidence for an atrial septal defect. Aortic Valve Aortic valve is calcified. No hemodynamically significant valvular aortic stenosis. Mild aortic regur gitation. Mitral Valve Moderate mitral annular calcification. No evidence of mitral valve stenosis. Mild to moderate mitral regurgitation. Tricuspid Valve The tricuspid valve is normal in structure. There is no tricuspid valve stenosis. Mild to moderate tr icuspid regurgitation. Pulmonic Valve The pulmonary valve is normal in structure. There is no pulmonic valvular stenosis. Trace pulmonic re gurgitation. Great Vessels The aortic root is normal in size. The ascending aorta is mildly dilated. Aortic arch is not well vis ualized. IVC is normal in size and collapses >50% with inspiration. Pericardium There is no pericardial effusion. 2D Dimensions IVSD d PLAX 0.96 cm F: 0.6-1.0 LV Vol A2C d MOD 59.3 mL LVPW d PLAX 0.98 cm F: 0.6 - 1.0 LV Vol A4C d MOD 63.8 mL LVID d PLAX 4.03 cm F: 3.8 - 5.2 LA vol/ BSA A2C s A-L 34.3 mL/m2 LVDs 2.55 cm F: 2.2 - 3.5 LA vol/ BSA A4C s A-L 20.3 mL/m2 Ao Root d 2.52 cm F: 2.7 - 3.3 LA Vol/ BSA Biplane s A-L 28.7 mL/m2 RA Area A4C 13.11 cm2 LA Area A4C s MOD 13.52 cm2 RA Vol/ BSA A4C s A-L 19.4 mL/m2 LA Area A2C s MOD 19.13 cm2 Ao Asc Diam d 3.46 cm F: 2.3 - 3.1 LV EF A4C MOD 60.0 % LV EF Teichholz 66.9 % LV EF A2C MOD 65.7 % LVEF (Oakes's) 64.73 % F: 54 - 74 LV EF Biplane MOD 64.7 % LV Volume 51.53 mL F: 46 - 106 SV 42.50 mL LV Volume Index 29.44 mL/m2 F: 29 - 61 SV Index 24.21 mL/m2 LV Vol Biplane MOD 65.7 mL FS 36.55 % M-Mode TAPSE 2.39 cm (M/F) >1.7 LV Diastology MV E' medial 0.096 (>0.07 m/s) E/A Ratio 0.8 LV E/e MED 13.20 (<14) MV E Vmax 1.27 (0.4-1.3 m/s) MV E' lateral 0.075 (>0.1 m/s) MV A Vmax 1.55 (0.4-1.3 m/s) LV E/e LAT 16.95 (<14) MV E/A Ratio 0.82 MV E/E' medial 13.22 MV E/E' lateral 16.96 Aortic Valve LVOT Area 2.84 cm2 AoV Area Vmax 1.79 cm2 LVOT Vmax 1.28 m/s AoV Area/ BSA (Vmax) 1.02 cm2/m2 LVOT Mean Stefano. 0.74 m/s DONALD Mean Stefano. 1.57 cm2 LVOT Peak Grad 6.5 mmHg DONALD Mean Stefano. Index 0.89 cm2/m2 LVOT Mean Grad 2.7 mmHg AR DT 1538 msec LVOT VTI 0.306 m AR PHT 446 msec LVOT Diam s 1.90 cm AoV Vmax 2.03 m/s Velocity Ratio 0.63 AoV Mean Stefano. 1.34 m/s AoV Peak Grad 16.5 mmHg LVOT SV 87.16 mL AoV Mean Grad 8.4 mmHg AoV VTI 0.481 m AoV Area VTI 1.81 cm2 AoV Area/ BSA (VTI) 1.03 cm/m2 Mitral Valve MV DT 282 (160-240 msec) MR Vmax 4.79 m/s MV PHT 82 msec MR VTI 1.606 m MV Area PHT 2.69 cm2 MR Peak Grad 91.8 mmHg MV VTI 0.642 m MR Mean Grad 58.0 mmHg MV VTI Annulus 0.652 m MV Area VTI 1.38 (4.0-6.0 cm2) Pulmonary Valve PV Vmax 1.19 (0.5-1.5 m/s) RVOT Peak Gr. 2.52 mmHg PV Peak Grad 5.6 mmHg RVOT Mean Gr. 1.40 mmHg PV Mean Grad 3.0 mmHg RVOT VTI 0.190 m PV VTI 0.259 m RVOT Vmax 0.79 m/s Tricuspid Valve TR Peak Grad 26.4 mmHg TR Vmax 2.57 m/s RA Pressure 3.00 mmHg RVSP (TR) 29.4 mmHg
[2021-07-06 03:20] VITALS: BP 96/58; PULSE 63; RESP 18; TEMP 36.6; O2SAT 95
[2021-07-06 07:54] LABS: Potassium 3.5 mmol/L (3.5-5.1)
[2021-07-06 08:12] LABS: Troponin I 222 ng/L (<or=60)
[2021-07-06] MEDS: Aspirin E.C. 81 MG TABEC PO (08:46)
[2021-07-06 08:49] VITALS: BP 148/83; PULSE 66; RESP 18; TEMP 36.2; O2SAT 99
[2021-07-06 08:53] VITALS: PULSE 67
--- NOTE | 2021-07-06 09:20 | PDOC.CMIN ---
- If Service Date Differs Date of service: 07/06/21 Time of Service: 09:20 Care Management Initial Assess REASON FOR HOSPITALIZATION:: PSVT PAST MEDICAL HISTORY/PAST SURGICAL HISTORY:: All Active Problems. SVT (supraventricular tachycardia) (Chronic). Elevated troponin (Acute). Osteopenia of lumbar spine (Acute). Medicare annual wellness visit, subsequent (Acute). Other hyperlipidemia (Acute 06/26/05). GOAL LDL<130; 2014 risk calc 12.3%; ASA and Atorvastatin begun 08/2014. Osteopenia (Acute 10/04/14). DEXA 10/03/14 T = -2.7 L wrist, all others 0.7 or better; FRAX score: 8 phil, 0.6 hip. Mitral valve regurgitation (Acute 06/04/13). mod on ECHO 06/24/10; rpt 07/03/13: mild MR, nl EF 65%. Hypertension (Acute 12/29/91). Hyperplastic colonic polyp (Acute 01/02/16). dr Velazquez. Other and unspecified hyperlipidemia (Acute 06/26/05). GOAL LDL<130; 2014 risk calc 12.3%. Colon cancer screening (Acute). Medical History. HTN (hypertension). Hx of hyperlipidemia. Vitiligo (06/01/11). Surgical History. Colonoscopy - IV Sedation (01/02/16). No significant past surgical history PREVIOUS FUNCTIONAL STATUS/SOCIAL/FAMILY SUPPORTS:: Nessa lives in [place] with her , Carlo. She is a retired teacher, who enjoys volunteering to keep herself busy. She has two children and four grand children. She is independent at baseline, and still drives, although not in the dark. CURRENT FUNCTIONAL STATUS:: Nessa was sitting up in bed when CM met with her. She was pleasant and engaged in conversation. She stated that the DRAPERY AND UPHOLSTERY MEASURER met with her and let her know that she would likely be discharging home after her Echo is read. She stated that she feels ready for discharge, and doesn't anticipate the need for any services. CM will continue to follow. ADVANCE DIRECTIVES:: On file. , Carlo, is [facility]. Has patient been provided with info about the portal/API?: Yes Did the patient sign up for the portal?: No CODE STATUS:: Full Code INSURANCE COVERAGE / FINANCIAL ISSUES:: Blue cross MCR advantage/ MCR/ BCBS CURRENT HOME/COMMUNITY SERVICES/EQUIPMENT:: No current services or equipment. PRIMARY CARE PHYSICIAN:: Yvonne Gutierrez POTENTIAL DISCHARGE NEEDS:: Evaluations for further needs, follow up appointments. PATIENT/FAMILY EDUCATION NEEDS:: Review discharge instructions and limitations, discussion of self care needs. ANTICIPATED BARRIERS TO DISCHARGE:: None identified. TRANSPORTATION:: Via private vehicle by her family. PLAN:: Anticipate Nessa will return home when medically cleared. Her will drive her home via private vehicle. She will follow up with her PCP and discharge plan of care. CM will continue to follow.
[2021-07-06 11:50] VITALS: BP 146/79; PULSE 67; RESP 18; TEMP 36.2; O2SAT 100
--- NOTE | 2021-07-06 12:22 | W.PM.DS.N ---
Date of service: 07/06/21 Time of Service: 12:23 DS: Diagnosis Discharge Diagnosis (1) SVT (supraventricular tachycardia): Start date: 07/06/21 Start time: 12:24 Status: Chronic Asessment and Plan: patient was admitted on telemetry to /s after receiving Adenosine x 3, then converted with 50 IV Cardizem. Trop 119 the 275. reviewed with Cardiology, presumed demand ischemia, advised trend trops and begin oral Cardizem. She denies CP doing well. continues to be NSR will be discharged home on 30 cardiac event recorder cardizem 120 She will need to be connected with Dr. 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 Recommend NPI will defer to cardology Echo as reads EF 60-65 percent RSVP 29, left atrium borderline dilated, aortic valve calcified. Moderate mitral annular calcification. No evidence of mitral valve stenosis. Mild to moderate mitral regurgitation. Therefore she is being discharged home on a 30 day cardiac event recorder. Discharge Plan Disposition Patient Disposition: HOME Condition: Good Discharge Details Reason For Visit: PSVT Admit Date/Time: 07/05/21 19:53 Admit Provider: Pablo Ma Attending Provider: Pablo Ma Primary Care Provider: Yvonne Gutierrez Hospital Course Hospital Course: 76 female admitted with sudden onset palpitations morning of admission. No associated CP or SOB. Pulse in the ED was in 130s on home BP monitor. Resolved after some unspecified period, but repeated pulse checks through the day showed range 140-150, though otherwise asymptomatic, but decided to come to ER. In ER, SVT was 150 noted. No effect with Adenosine x 3, then converted with 50 IV Cardizem. Trop 119 the 275. reviewed with Cardiology, presumed demand ischemia, advised trend trops and begin oral Cardizem. She did potassium supplementation while here. K now normal. Trops trending down. Nos CP or SOB. Echo done (see above). Recommend NPI will defer to PCP. 30 day event recorder start on 120 cardizem at night. Follow up with cardiology and PCP. Home Meds and New Rx's Prescriptions: New diltiazem HCl [Cardizem CD] 120 mg capsule,extended release 24hr 120 mg PO HS Qty: 14 0RF Continued fluocinolone 0.01 % solution 1 applic Topical BID Qty: 60 6RF Rx Instructions: TO [employer]RHE[employer]ES[employer] EARS cholecalciferol (vitamin D3) 125 mcg (5,000 unit) capsule 125 mcg PO DAILY 0RF atorvastatin 20 mg tablet 20 mg PO QPM Qty: 90 3RF lisinopril-hydrochlorothiazide 20-25 mg tablet 1 tab PO DAILY Qty: 90 3RF Rx Instructions: to lower blood pressure potassium chloride [Klor-Con 10] 10 mEq tablet extended release 10 meq PO DAILY Qty: 90 3RF Rx Instructions: potassium replacement calcium carbonate-vitamin D3 [Oyster Shell + D3] 1 EACH tablet 1 ea PO DAILY 0RF aspirin 81 mg tablet,delayed release (DR/EC) 81 mg PO DAILY Qty: 100 3RF Rx Instructions: for prevention of vascular events Discharge Instructions Instructions: Supraventricular Tachycardia (DC) Additional Instructions: Follow up with cardiology Follow up with PCP in 1-2 weeks Take cardizem at night for Heart rate control Chest xray revealed 1.5 cm nodular calcific density projecting at the medial base of the left lung adjacent to the thoracic spine, this should be further followed up as an outpatient Stand Alone Forms: Nursing Discharge Form Referrals: Taryn Rice MD [ [facility] STAFF PHYSICIAN] - (Office will call you with appointment) Yvonne Gutierrez NP [Primary Care Provider] - 07/20/21 9:45 am Activity:: Activity as Tolerated Equipment/Supplies:: No Equipment Needed Diet:: As Tolerated Discharge Orders Discharge Orders: Discharge Order (Routine); Ordered 07/06/21 Ordered By: Yumiko Billings Other Ambulatory Orders: Cardiac Event Recorder (Routine) Timeframe: 1 Month Facility: [facility] - Location: Respiratory Therapy Ordered By: Yumiko Billings DS: Summary Time Spent with Patient providing and/or coordinating discharge services: Greater than 30 minutes Status at Discharge Functional status at discharge: independent ambulation Overall status at discharge: patient is back to baseline Mental Status: mental status grossly normal Speech and Movement: speech and movement normal Mood: congruent mood Affect: normal affect Exam Const General: cooperative, comfortable and no acute distress Orientation: alert, awake and oriented x3 Eyes Eyelids: eyelids normal Pupils: PERRL EOM: EOM intact bilaterally Neck Neck: normal visual inspection and no JVD Lymphatic: no lymphadenopathy noted Resp Effort & Inspection: normal respiratory effort Auscultation: clear to auscultation bilaterally Cardio Jugular venous pressure: no JVD Rhythm: regular rhythm Heart Sounds: S1 normal GI Auscultation: normal bowel sounds Skin General skin exam: no rashes or lesions noted Neuro General: patient alert, patient awake and patient oriented x3 Cognition: normal cognition Speech: speech normal Gait: normal gait Extrem General: normal to inspection, full ROM and no clubbing, cyanosis or edema Psych Mental Status: mental status grossly normal Speech and Movement: speech and movement normal Mood: congruent mood Affect: normal affect DS: Data Vitals/I&O Vitals and I&O: Vital Signs Temperature 36.2 C L 07/06/21 11:50 Temperature Source Tympanic 07/06/21 11:50 Pulse 67 07/06/21 11:50 Pulse Rhythm Regular 07/06/21 08:40 Pulse 74 07/05/21 20:01 Respiratory Rate 18 07/06/21 11:50 Respiratory Effort Non-Labored 07/06/21 08:40 Respiratory Depth Normal 07/06/21 08:40 Respiratory Pattern Normal 07/06/21 08:40 Blood Pressure 146/79 H 07/06/21 11:50 Blood Pressure Mean 106 07/05/21 20:01 Blood Pressure Position Supine 07/05/21 14:53 Pulse Oximetry 100 07/06/21 11:50 Oxygen Delivery Method Room Air 07/06/21 11:50 Oxygen Flow Rate 0 07/06/21 11:50 Pain Level 0 07/06/21 11:50 Comment 07/06/21 03:20 Intake & Output 07/05/21 07/06/21 07/06/21 23:59 11:59 23:59 Output Total 400 / 850 450 / 850 Balance -400 / -850 -450 / -850 Weight 68.6 kg Output: Urine 400 / 850 450 / 850 Other: Urine Color Yellow Yellow Urine Appearance Clear Clear Urine Odor Normal None Voiding Methods Toilet Toilet Data Completed and Pending Completed studies during hospitalization [Text1]: FINDINGS: Exam limited by multiple leads overlying the chest. LUNGS: Clear. No pleural abnormality seen. HEART: Normal size.? Mitral annular calcifications.. AORTA: Normal. BONES: Unremarkable for age.? Soft tissues: Calcific density projecting at medial left lung base could represent calcified granuloma or soft tissue calcification. IMPRESSION: No acute? findings. FINDINGS: Lungs: There is a 1.5 cm nodular calcific density projecting at the medial base of the left lung adjacent to the thoracic spine. The lungs are otherwise clear. There is no pulmonary vascular congestion. Pleural spaces: There are no pleural effusions present. There is no evidence of pneumothorax. Heart/Mediastinum: The cardiomediastinal silhouette is within normal limits. Bones/joints: See Lungs finding. IMPRESSION: 1. No active cardiopulmonary disease identified. 2. 1.5 cm calcific nodular density projecting at the medial base of the left lung, could represent confluence of osseous shadows versus a benign calcified granuloma. Labs on day of discharge: Labs from last 24 hours 07/06/21 07/06/21 07/05/21 06:18 06:18 20:58 WBC RBC Hgb Hct MCV MCH MCHC RDW Plt Count MPV Immature Gran % Neutrophils % Lymphocytes % Monocytes % Eosinophils % Basophils % Nucleated RBC % Absolute Neutrophils Absolute Lymphocytes Absolute Monocytes Absolute Eosinophils Absolute Basophils Sodium Potassium 3.5 Chloride Carbon Dioxide Anion Gap BUN Creatinine Estimated GFR/1.73 m2 Glucose Calcium Magnesium Total Bilirubin AST ALT Alkaline Phosphatase Troponin I 222 H* 305 H* Total Protein Albumin TSH COVID-19 Source SARS-CoV-2 (PCR) 07/05/21 07/05/21 07/05/21 20:25 18:00 18:00 WBC RBC Hgb Hct MCV MCH MCHC RDW Plt Count MPV Immature Gran % Neutrophils % Lymphocytes % Monocytes % Eosinophils % Basophils % Nucleated RBC % Absolute Neutrophils Absolute Lymphocytes Absolute Monocytes Absolute Eosinophils Absolute Basophils Sodium Potassium Chloride Carbon Dioxide Anion Gap BUN Creatinine Estimated GFR/1.73 m2 Glucose Calcium Magnesium Total Bilirubin AST ALT Alkaline Phosphatase Troponin I 275 H* Total Protein Albumin TSH 1.60 COVID-19 Source Nasal/Nares SARS-CoV-2 (PCR) Negative 07/05/21 07/05/21 14:58 14:58 WBC 6.55 RBC 4.34 Hgb 13.5 Hct 40.1 MCV 92 MCH 31.1 MCHC 33.7 RDW 11.8 Plt Count 224 MPV 10.0 Immature Gran % 0.3 Neutrophils % 64.8 Lymphocytes % 23.2 Monocytes % 9.5 Eosinophils % 1.4 Basophils % 0.8 Nucleated RBC % 0.0 Absolute Neutrophils 4.25 Absolute Lymphocytes 1.52 Absolute Monocytes 0.62 Absolute Eosinophils 0.09 Absolute Basophils 0.05 Sodium 132 L Potassium 3.3 L Chloride 95 L Carbon Dioxide 27.6 Anion Gap 9.4 BUN 13 Creatinine 0.9 Estimated GFR/1.73 m2 >= 60.00 Glucose 151 H Calcium 9.4 Magnesium 2.1 Total Bilirubin 0.6 AST 24 ALT 31 Alkaline Phosphatase 55 Troponin I 119 H* Total Protein 7.7 Albumin 4.1 TSH COVID-19 Source SARS-CoV-2 (PCR) PFSH All Active Problems SVT (supraventricular tachycardia) (Chronic) Elevated troponin (Acute) Osteopenia of lumbar spine (Acute) Medicare annual wellness visit, subsequent (Acute) Other hyperlipidemia (Acute 06/26/05) GOAL LDL<130; 2014 risk calc 12.3%; ASA and Atorvastatin begun 08/2014 Osteopenia (Acute 10/04/14) DEXA 10/03/14 T = -2.7 L wrist, all others 0.7 or better; FRAX score: 8 phil, 0.6 hip Mitral valve regurgitation (Acute 06/04/13) mod on ECHO 06/24/10; rpt 07/03/13: mild MR, nl EF 65% Hypertension (Acute 12/29/91) Hyperplastic colonic polyp (Acute 01/02/16) dr Velazquez Other and unspecified hyperlipidemia (Acute 06/26/05) GOAL LDL<130; 2014 risk calc 12.3% Colon cancer screening (Acute) Medical History HTN (hypertension) Hx of hyperlipidemia Vitiligo (06/01/11) Surgical History Colonoscopy - IV Sedation (01/02/16) No significant past surgical history Family History Mother , heart issues at age 86. Essential hypertension Heart disease Anxiety Father , CVA at age 70. Stroke Hypertension Social History Smoking/Tobacco Use Status: Former Tobacco Use Tobacco: How many years used: 25 Second Hand Exposure: No Smoking risk assessment performed?: Yes Alcohol Intake: current Alcohol Intake frequency: 0-2 drinks per day Drug use: Never Substance use type: does not use Adopted: No Caregiver/Support person: No Foster care: No Household members: spouse Housing: house Number of Children: 2 number of grandchildren: 4 Communication Needs: Corrective Lenses Education Level: college Do you need help understanding health information?: Rarely current occupation: retired Pets and animals: No Sexually active: No Do you think of yourself as: straight/heterosexual Current gender identity: female What is your relationship status?: living with partner How often do you talk on the phone with friends or family?: twice per week How often do you get together with friends or relatives?: three or more times per week Do you belong to any clubs or organized social groups?: yes Panel score (0-1 are the most socially isolated patients): 3 What type of physical activity do you participate in: walking Duration: 15-30 minutes/day Frequency: 5-6 times per week Apdmini/Caodaism: Church Seatbelt use: always Drive intox or ride w/intox 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
[2021-07-06 12:35] VITALS: PULSE 68
--- NOTE | 2021-07-06 18:05 | PDOC.CMDIS ---
- If Service Date Differs Date of service: 07/06/21 Time of Service: 18:05 LACE Index Scoring Tool - Questions: Length of Stay (in days): 1 Acuity (Admit via E.D.?): Yes E.D. Visits: 1 - Answers: Total Score: 5 Risk of Readmission: Low Risk Care Management Discharge Reason for Hospitalization: PSVT Discharge Plan: Nessa returned home today with no new services. Her drove her home via private vehicle. She will follow up with her PCP and discharge plan of care. She was happy to be going home. Patient/Family Education Needs: Review discharge instructions regarding activity levels and medications, discussion of self care needs including ask me three.
== END 2021-07-06 14:48 | disposition home or self-care (01) ==
LOC: ER 20:22 → MS 21:04
PROVIDERS: Admitting Provider General Practice; Emergency Provider Physician Assistant; PCP Nurse Practitioner; Visit Provider General Practice
DX: I47.1 Supraventricular tachycardia (principal); I24.8 Other forms of acute ischemic heart disease; I10 Essential (primary) hypertension; Z79.82 Long term (current) use of aspirin; E78.5 Hyperlipidemia, unspecified; Z87.891 Personal history of nicotine dependence; E87.6 Hypokalemia; M85.88 Other specified disorders of bone density and structure, other site; I08.3 Combined rheumatic disorders of mitral, aortic and tricuspid valves; I77.810 Thoracic aortic ectasia; Z79.899 Other long term (current) drug therapy
CPT/HCPCS: 36415; 80053; 87635; 93005; 93270; 93306; 96374; 96375; 96376; 99285; 71045; 83735; 84132; 84443; 84484; 85025; 93010; 99217; 99219; G0378; J0153

== ENCOUNTER 2021-07-07 09:37 | Emergency (ER) | payer MEDICARE, SELFPAY ==
[2021-07-07] VITALS (50 sets, daily range): BP systolic 106–201; BP diastolic 48–119; PULSE 66–154; RESP 11–24; TEMP 36.3; O2SAT 92–99
--- NOTE | 2021-07-07 09:45 | RT.EKG_ITS ---
APPROVED REPORT Exam: Resting ECG Reason for Exam: tachycardia Patient Location: E HR:151 bpm ECG Measurements Heart Rate 151 AXIS TX 102 P 78 QRSd 83 QRS 16 QT 360 T 1 QTc 572 Conclusion Narrow complex regular tachycardia, no st elevation
--- NOTE | 2021-07-07 09:45 | RT.EKG_ITS ---
APPROVED REPORT Exam: Resting ECG Reason for Exam: tachycardiaa - run double speed please Patient Location: E HR:149 bpm ECG Measurements Heart Rate 149 AXIS IN 114 P 95 QRSd 100 QRS 11 QT 302 T -20 QTc 478 Conclusion Regular, narrow complex tachycardia No ST elevation
[2021-07-07] MEDS: dilTIAZem 25 MG/5 ML VIAL 15 MG IVP ×2 (10:08→10:24)
[2021-07-07 10:10] LABS: Abs Immature Grans 0.01 10^3/uL (0.0-0.06); Absolute Basophil Count 0.03 10^3/uL (0.0-0.2); Absolute Eosinophil Count 0.06 10^3/uL (0.0-0.7); Absolute Lymphocyte Count 2.02 10^3/uL (1.2-3.4); Absolute Monocyte Count 0.56 10^3/uL (0.1-0.8); Absolute Neutrophil Count 3.75 10^3/uL (1.2-6.7); Basophils % 0.5; Eosinophils % 0.9; HCT 43.9 % (36.0-46.0); HGB 14.8 g/dL (11.2-15.7); Immature Grans % 0.2; Lymphocytes % 31.4; MCH 31.3 pg (27.0-33.0); MCHC 33.7 % (32.0-36.0); MCV 93 fL (80-95); MPV 9.2 fL (8.0-11.0); Monocytes % 8.7; Neutrophils % 58.3; Platelet Count 234 10^3/uL (130-400); RBC 4.73 10^6/uL (3.93-5.22); RDW 11.9 % (11.7-14.6); RDW-SD 40.4 fL; WBC 6.43 10^3/uL (4.4-10.8)
--- NOTE | 2021-07-07 10:15 | RT.EKG_ITS ---
APPROVED REPORT Exam: Resting ECG Reason for Exam: dysrhythmia Patient Location: E HR:109 bpm ECG Measurements Heart Rate 109 AXIS KS [id number] P [id number] QRSd 83 QRS -11 QT 335 T -5 QTc 452 Conclusion Atrial fibrillation...V-rate 89-121, irreg A-activity Probable inferior infarct, age indeterminate...Q>35mS, T neg, II III aVF
--- NOTE | 2021-07-07 10:19 | RT.EKG_ITS ---
APPROVED REPORT Exam: Resting ECG Reason for Exam: aflutter Patient Location: E HR:81 bpm ECG Measurements Heart Rate 81 AXIS MA 145 P 44 QRSd 78 QRS -9 QT 352 T 12 QTc 408 Conclusion Sinus rhythm...normal P axis, V-rate 60- 99 Left atrial enlargement...P, P'>60mS, <-0.15mV V1
[2021-07-07 10:33] LABS: Anion Gap 9.7 mmol/L (3-11); BUN 16 mg/dL (7-18); CO2 27.3 mmol/L (21.0-32.0); CREATININE 1.1 mg/dL (0.55-1.02); Chloride 97 mmol/L (98-107); Estimated GFR 48.42 (mL/min/1.73m2); Glucose 162 mg/dL (74-106); Magnesium 1.8 mg/dL (1.8-2.4); NT-proBNP 375 pg/mL (<300); Potassium 3.6 mmol/L (3.5-5.1); Sodium 134 mmol/L (136-145)
[2021-07-07] MEDS: dilTIAZem CD 180 MG CAPCR PO (10:37)
[2021-07-07 10:38] LABS: Troponin I 89 ng/L (<or=60)
[2021-07-07] MEDS: Apixaban 5 MG TAB PO (11:07)
[2021-07-07 12:38] LABS: Troponin I 113 ng/L (<or=60)
--- NOTE | 2021-07-07 14:09 | NUR.NOTE ---
Referral faxed to [facility] Cardiology for atrial flutter with the next available appt. Stress test order given to DI for aflutter, MPI stress test, medications not to be held. Camille Leo
--- NOTE | 2021-07-07 14:36 | ED.GENADUL_ITS ---
Discharge Plan Disposition Patient Disposition: HOME Condition: Stable Discharge Details Clinical Impression: Atrial fib/flutter, transient Primary Care Provider: Yvonne Gutierrez ED Provider: Eliane Tomas Home Meds and New Rx's Prescriptions: New Eliquis 5 mg tablet 5 mg PO BID Qty: 60 0RF metoprolol succinate 50 mg tablet extended release 24 hr 50 mg PO DAILY Qty: 30 0RF Continued cholecalciferol (vitamin D3) 125 mcg (5,000 unit) capsule 125 mcg PO DAILY 0RF atorvastatin 20 mg tablet 20 mg PO QPM Qty: 90 3RF calcium carbonate-vitamin D3 [Oyster Shell + D3] 1 EACH tablet 1 ea PO DAILY 0RF aspirin 81 mg tablet,delayed release (DR/EC) 81 mg PO DAILY Qty: 100 3RF Rx Instructions: for prevention of vascular events diltiazem HCl [Cardizem CD] 120 mg capsule,extended release 24hr 120 mg PO HS Qty: 14 0RF Discontinued fluocinolone 0.01 % solution 1 applic Topical BID Qty: 60 6RF Rx Instructions: TO [employer] lisinopril-hydrochlorothiazide 20-25 mg tablet 1 tab PO DAILY Qty: 90 3RF Rx Instructions: to lower blood pressure potassium chloride [Klor-Con 10] 10 mEq tablet extended release 10 meq PO DAILY Qty: 90 3RF Rx Instructions: potassium replacement Discharge Instructions Instructions: A-fib (Atrial Fibrillation) (ED) Additional Instructions: Take Eliquis as prescribed, this medication will make it easier for you to bleed, use caution and if you do hit your head or have any injuries, you should be reassessed immediately Refrain from engaging in activities where you may place yourself at increased risk For harm including climbing ladders, working at heights Continue taking the diltiazem and add metoprolol to her regimen You may take the metoprolol in the morning and diltiazem at night, however talk to your doctor and your kindergarten classroom teacher regarding the best plan for taking these medications Discontinue your lisinopril and your potassium Follow-up with your primary care physician and kindergarten classroom teacher, and listing both below Do not take an additional dose of the metoprolol as this is the extended release regimen and presents to the emergency department should you have recurrence of symptoms, heart rate greater than 120, or pressure in her chest Have also scheduled you for an outpatient stress test, it is important that you to have this stress test performed Referrals: Taryn Rice MD [ [facility] STAFF PHYSICIAN] - 2 days Yvonne Gutierrez NP [Primary Care Provider] - Discharge Data Discharge Date/Time-TO BE ENTERED AT DEPARTURE: 07/07/21 14:43 Medical Decision Making Initially patient's EKG was thought to be SVT and she was actually admitted for suspected SVT but had converted in the emergency department after diltiazem and did not have recurrence of this., She was sent home appropriately on Holter monitor and diltiazem at 120 release and was doing well until she started feeling fatigued last evening. She denies any chest pain or shortness of breath. She states she feels tired and racing in her chest. Secondary to suspected atrial flutter during recurrent and persistent of symptoms, she was given 60 mg of IV diltiazem, she did not convert and so this was repeated and she had successful conversion normal sinus rhythm, EKG was obtained and does show normal sinus rhythm at a rate of 70 to 80 bpm I discussed with kindergarten classroom teacher regarding appropriate management with elevated troponin and Dr. Avila felt as though this is likely rate related and slight troponin and that she is stable for discharge given that she is asymptomatic and improved She does have a [id number] score of 2 and therefore we did discuss anticoagulation and she is agreed to take Eliquis 5 mg She is also been started on metoprolol at the request of Dr. Rice She has been started on 50 mg of extended release metoprolol and 120 of extended release diltiazem She will discontinue her hydrochlorothiazide lisinopril combination and her potassium She will have outpatient cardiology follow-up She did have an echocardiogram on her last visit which I reviewed with an ejection fraction of 65% and no acute abnormality Hospitalist, Dr. Nava of the patient would like to be discharged home and appears to be quite stable although she did have 2 elevated troponins most likely strain related and she did not have any chest discomfort with the symptoms She will be scheduled for an outpatient MPI stress test which both Dr. Rice and Brandy are comfortable with discharge at this time Patient is aware that she should return immediately should she have new or worsening complaints She is discharged home in stable condition at time of reassessment and in normal sinus rhythm with appropriate return, fully alert and oriented with Holter monitor in place Medical Records Medical records reviewed: Yes I reviewed the patient's medical records. Lab Data Lab results reviewed: Yes I reviewed the patient's lab results. HPI General Date/Time Provider Initiated Documentation: 07/07/21 09:41 . HPI Narrative: This 76-year-old female with past medical history of hypertension, hyperlipidemia hyperplastic colonic polyps presents with reports of feeling fatigued of palpitations. She states he had a similar episode for she was e valuated on Tuesday of this week. She was admitted to the hospital with reported supraventricular tachycardia. She was started on diltiazem. She been taking this medication as prescribed and has had a Holter monitor in place. She denies any current chest discomfort. Denies any fever or chills. She denies stroke symptoms, specifically no speech, vision, sensation change. Related Data Home Medications Medication Instructions Recorded Confirmed calcium carbonate 250 mg-vitamin 1 ea PO DAILY 08/14/15 07/07/21 D3 3.125 mcg (125 unit) tablet (Oyster Shell + D3) aspirin 81 mg tablet,delayed 81 mg PO DAILY #100 tab 06/22/18 07/07/21 release atorvastatin 20 mg tablet 20 mg PO QPM #90 tab 02/19/21 07/07/21 cholecalciferol (vitamin D3) 125 125 mcg PO DAILY 02/19/21 07/07/21 mcg (5,000 unit) capsule diltiazem HCl 120 mg 120 mg PO HS #14 cap 07/06/21 07/07/21 capsule,extended release 24 hr (Cardizem CD) apixaban 5 mg tablet (Eliquis) 5 mg PO BID #60 tab 07/07/21 metoprolol succinate 50 mg 50 mg PO DAILY #30 tab 07/07/21 tablet,extended release 24 hr Previous Rx's Medication Instructions Recorded aspirin 81 mg tablet,delayed 81 mg PO DAILY #100 tab 06/22/18 release atorvastatin 20 mg tablet 20 mg PO QPM #90 tab 02/19/21 diltiazem HCl 120 mg 120 mg PO HS #14 cap 07/06/21 capsule,extended release 24 hr (Cardizem CD) apixaban 5 mg tablet (Eliquis) 5 mg PO BID #60 tab 07/07/21 metoprolol succinate 50 mg 50 mg PO DAILY #30 tab 07/07/21 tablet,extended release 24 hr Allergies Allergy/AdvReac Type Severity Reaction Status Date / Time No Known Allergies Allergy Verified 07/07/21 09:47 General Stated Complaint: GenMedical ED: 3 Review of Systems All systems reviewed & are unremarkable except as noted in HPI and below PFSH All Active Problems (Updated 07/07/21 @ 14:13 by DARLENE Dia) Atrial fib/flutter, transient (Acute) Osteopenia of lumbar spine (Acute) Medicare annual wellness visit, subsequent (Acute) Other hyperlipidemia (Acute 06/26/05) GOAL LDL<130; 2014 risk calc 12.3%; ASA and Atorvastatin begun 08/2014 Osteopenia (Acute 10/04/14) DEXA 10/03/14 T = -2.7 L wrist, all others 0.7 or better; FRAX score: 8 phil, 0.6 hip Mitral valve regurgitation (Acute 06/04/13) mod on ECHO 06/24/10; rpt 07/03/13: mild MR, nl EF 65% Hypertension (Acute 12/29/91) Hyperplastic colonic polyp (Acute 01/02/16) dr Velazquez Other and unspecified hyperlipidemia (Acute 06/26/05) GOAL LDL<130; 2014 risk calc 12.3% Colon cancer screening (Acute) Medical History HTN (hypertension) Hx of hyperlipidemia Vitiligo (06/01/11) Surgical History Colonoscopy - IV Sedation (01/02/16) No significant past surgical history Family History Mother , heart issues at age 86. Essential hypertension Heart disease Anxiety Father , CVA at age 70. Stroke Hypertension Social History Smoking/Tobacco Use Status: Former Tobacco Use Tobacco: How many years used: 25 Second Hand Exposure: No Smoking risk assessment performed?: Yes Alcohol Intake: current Alcohol Intake frequency: 0-2 drinks per day Drug use: Never Substance use type: does not use Adopted: No Caregiver/Support person: No Foster care: No Household members: spouse Housing: house Number of Children: 2 number of grandchildren: 4 Communication Needs: Corrective Lenses Education Level: college Do you need help understanding health information?: Rarely current occupation: retired Pets and animals: No Sexually active: No Do you think of yourself as: straight/heterosexual Current gender identity: female What is your relationship status?: living with partner How often do you talk on the phone with friends or family?: twice per week How often do you get together with friends or relatives?: three or more times per week Do you belong to any clubs or organized social groups?: yes Panel score (0-1 are the most socially isolated patients): 3 What type of physical activity do you participate in: walking Duration: 15-30 minutes/day Frequency: 5-6 times per week Padmini/Restorationism: Rastafarian Seatbelt use: always Drive intox or ride w/intox shag truck driver: No Working smoke detector in home: Yes Fire extinguisher in home: Yes Carbon monox detector in home: Yes Do you feel safe at home: Yes Do you feel safe in your relationship?: Yes Exam Const General: cooperative Resp Effort & Inspection: normal respiratory effort Auscultation: clear to auscultation bilaterally Cardio Rate: tachycardic Rhythm: regular rhythm GI Inspection: normal to inspection Auscultation: normal bowel sounds Skin General skin exam: no rashes or lesions noted Neuro General: patient alert and patient oriented x3 Extrem Other: No calf swelling or tenderness Course Vital Signs Vital signs: Vital Signs Temperature 36.3 C L 07/07/21 09:41 Pulse 154 H 07/07/21 09:41 Respiratory Rate 16 07/07/21 09:41 Blood Pressure 148/90 H 07/07/21 09:41 Pulse Oximetry 98 07/07/21 09:41 Temperature 36.3 C L 07/07/21 09:41 Pulse 66 07/07/21 14:02 Pulse 72 07/07/21 14:10 Respiratory Rate 21 07/07/21 14:10 Respiratory Effort Non-Labored 07/07/21 10:05 Respiratory Depth Normal 07/07/21 10:05 Respiratory Pattern Normal 07/07/21 10:05 Blood Pressure 117/58 L 07/07/21 14:02 Blood Pressure Mean 71 07/07/21 14:02 Pulse Oximetry 97 07/07/21 14:10 Oxygen Delivery Method Room Air 07/07/21 09:41 Oxygen Flow Rate 0 07/07/21 09:41 Lab/Test Results Lab/Test Results: Laboratory Tests Range/Units 07/07/21 07/07/21 07/07/21 10:07 10:07 10:07 WBC (4.4-10.8) 10^3/uL 6.43 RBC (3.93-5.22) 10^6/uL 4.73 Hgb (11.2-15.7) g/dL 14.8 Hct (36.0-46.0) % 43.9 MCV (80-95) fL 93 MCH (27.0-33.0) pg 31.3 MCHC (32.0-36.0) % 33.7 RDW (11.7-14.6) % 11.9 Plt Count (130-400) 10^3/uL 234 MPV (8.0-11.0) fL 9.2 Immature Gran % 0.2 Neutrophils % 58.3 Lymphocytes % 31.4 Monocytes % 8.7 Eosinophils % 0.9 Basophils % 0.5 Nucleated RBC % (0.0-0.3) % 0.0 Absolute Neutrophils (1.2-6.7) 10^3/uL 3.75 Absolute Lymphocytes (1.2-3.4) 10^3/uL 2.02 Absolute Monocytes (0.1-0.8) 10^3/uL 0.56 Absolute Eosinophils (0.0-0.7) 10^3/uL 0.06 Absolute Basophils (0.0-0.2) 10^3/uL 0.03 Sodium (136-145) mmol/L 134 L Potassium (3.5-5.1) mmol/L 3.6 Chloride (98-107) mmol/L 97 L Carbon Dioxide (21.0-32.0) mmol/L 27.3 Anion Gap (3-11) mmol/L 9.7 BUN (7-18) mg/dL 16 Creatinine (0.55-1.02) mg/dL 1.1 H Estimated GFR/1.73 m2 (mL/min/1.73m2) 48.42 Glucose (74-106) mg/dL 162 H Calcium (8.5-10.1) mg/dL 10.0 Magnesium (1.8-2.4) mg/dL 1.8 Troponin I (<or=60) ng/L 89 H* NT-Pro-B Natriuret Pep (<300) pg/mL 375 H Cancelled Range/Units 07/07/21 12:05 WBC (4.4-10.8) 10^3/uL RBC (3.93-5.22) 10^6/uL Hgb (11.2-15.7) g/dL Hct (36.0-46.0) % MCV (80-95) fL MCH (27.0-33.0) pg MCHC (32.0-36.0) % RDW (11.7-14.6) % Plt Count (130-400) 10^3/uL MPV (8.0-11.0) fL Immature Gran % Neutrophils % Lymphocytes % Monocytes % Eosinophils % Basophils % Nucleated RBC % (0.0-0.3) % Absolute Neutrophils (1.2-6.7) 10^3/uL Absolute Lymphocytes (1.2-3.4) 10^3/uL Absolute Monocytes (0.1-0.8) 10^3/uL Absolute Eosinophils (0.0-0.7) 10^3/uL Absolute Basophils (0.0-0.2) 10^3/uL Sodium (136-145) mmol/L Potassium (3.5-5.1) mmol/L Chloride (98-107) mmol/L Carbon Dioxide (21.0-32.0) mmol/L Anion Gap (3-11) mmol/L BUN (7-18) mg/dL Creatinine (0.55-1.02) mg/dL Estimated GFR/1.73 m2 (mL/min/1.73m2) Glucose (74-106) mg/dL Calcium (8.5-10.1) mg/dL Magnesium (1.8-2.4) mg/dL Troponin I (<or=60) ng/L 113 H* NT-Pro-B Natriuret Pep (<300) pg/mL Critical Care Time Critical Care Time Critical Care Time: Yes Total Critical Care Time: 60 Attestation: IV temperature monitoring, IV diltiazem, p.o. diltiazem, telemetry monitoring, cardiac consultation
--- NOTE | 2021-10-22 15:58 | W.CARDEVENT ---
Date of service: 10/22/21 Time of Service: 15:58 Cardiac Event Recorder Referring Provider:: Ginger Nava Indications:: Supraventricular tachycardia Cardiac Event Note: This is a 30-day event monitor, reportedly ordered for supraventricular tachycardia Predominant rhythm was sinus with an average heart rate 62. Minimum was 55, maximum 140 There were no ventricular dysrhythmias Episodes labeled atrial fibrillation and atrial flutter appeared to be sinus rhythm and sinus tachycardia with artifact Episodes labeled SVT appeared to be sinus tachycardia, again with artifact
== END 2021-07-07 14:43 | disposition home or self-care (01) ==
PROVIDERS: Emergency Provider Physician Assistant; PCP Nurse Practitioner
DX: I48.91 Unspecified atrial fibrillation (principal); I48.92 Unspecified atrial flutter; R00.0 Tachycardia, unspecified; R79.89 Other specified abnormal findings of blood chemistry
CPT/HCPCS: 36415; 80048; 93005; 96374; 99284; 83735; 83880; 84484; 85025; 93010

== ENCOUNTER → 2021-07-14 00:57 | Outpatient (CLI) | payer MEDICARE, SELFPAY ==
--- NOTE | 2021-07-14 06:45 | DI.NM_ITS ---
APPROVED REPORT Exam: Pharmacologic Patient Location: Out-Patient Room/Bed: Stress Nurse: Shauna García RN Ordering Provider:DUSTIN DAN, Contact Number: [phone] BMI: 23.96 Baseline Rhythm: Sinus Rhythm Indications: ELEVATED TROPONINS, NEW ATRIAL FLUTTER, ABNORMAL EKG, HTN, PALPITATIONS Medical History Medical History: AFIB/Flutter, transient; HLD; Mitral valve regurgitation; HTN Cardiac Medications: Metoprolol succinate, Diltiazem, Atorvastatin, Eliquis Allergies: No known drug allergies, No known drug allergies Cardiac Risk Factors: Hyperlipidemia, HTN, FHX of CAD Previous Cardiac Procedures: None Pretest Chest Pain Characteristics: No chest pain Exercise History: Physically active Physical Disabilities: No Lung Sounds: Clear to auscultation Heart Sounds: Regular Stress Test Details Test: Pharmacologic stress testing performed using 0.4 mg of regadenoson per 5 mL given IV over 10 s econds. Reason for pharmacologic stress test: Hypertensive crisis. Nuclear Acquisition: Rest Tc-99m/Stress Tc-99m 1 day Rest Isotope: Tc-99m Sestamibi. Dose: 10.0 Date: 07/14/2021 Injection Time: 0930 Stress Isotope: Tc-99m Sestamibi. Dose: 31.5 Date: 07/14/2021 Injection Time: 1120 HR Resting HR Supine: 65 bpm Max Heart Rate (APMHR): 145.846098 bpm Resting HR Standin bpm Target HR (85% APMHR): 123.232903 bpm Max HR Achieved: 90 bpm % of APMHR: 62.07 Recovery HR: 71 bpm Comment: Metoprolol succinate not held for test. BP Resting BP Supine: 198/78 mmHg Resting BP Standin/80 mmHg Max BP: 218/64 mmHg Recovery BP: 158/58 mmHg Comment: Hypertensive crisis. Patient reports white coat syndrome, SBP at home this morning was 118. ECG Resting ECG: Sinus Rhythm Ectopy: None Stress ECG: Sinus Rhythm ST Change: No significant ST segment changes noted Arrhythmia: None Recovery ECG: Sinus Rhythm Recovery ST Change: Horizontal ST depression Recovery Arrhythmia: None Clinical Stress Symptoms: Dyspnea, Abdominal discomfort Rate Pressure Product: [id number] Stress ECG Conclusion 1. Resting electrocardiogram was within normal limits 2. Patient underwent pharmacologic stress with regadenoson 3. Resting hypertension 4. Maximum heart rate achieved was 62% of predicted 5. The electrocardiographic portion of the test was nondiagnostic due to inadequate heart rate 6. The MPI report Critical Notification Critical Value: Yes Physician Notified Date: 07/14/2021 Time: 111 Physician Name: Dr. Rice Response Time: 1110 Stress Test Summary STAGE HR BP Symptoms NOTES Supine 65 198/78 1 min post Lexiscan injection 90 218/64 3 min post Lexiscan injection 81 192/60 6 min post Lexiscan injection 71 158/58 Standing 66 214/80 Patient SBP's over the 200's prior to stress test, despite rest and multiple rechecks. Patient report s she has white coat syndrome, and that her SBP at home was 118. Dr. Rice notified who advised to con tinue with lexiscan. MPI Conclusion Normal myocardial perfusion without evidence of ischemia or prior infarction EF 78%, normal wall motion Radiologist Interpretation Radiologist agrees with Cullet Washer's Interpretation. Radiologist Interpretation by: García Jon MD Interpretation Date/Time: 07/15/2021 09:35:05
[2021-07-14] MEDS: Regadenoson 0.4 MG/5 ML SYR IVP (11:20)
== END ==
PROVIDERS: PCP Nurse Practitioner; Visit Provider Nurse Practitioner
DX: I10 Essential (primary) hypertension (principal); R00.2 Palpitations; R77.8 Other specified abnormalities of plasma proteins; R94.31 Abnormal electrocardiogram [ECG] [EKG]
CPT/HCPCS: 78452; 93016; 93018; 93017; J2785

== ENCOUNTER 2021-09-01 09:27 | Outpatient (CLI) | payer MEDICARE, SELFPAY ==
--- NOTE | 2021-09-01 09:15 | RT.EKG_ITS ---
APPROVED REPORT Exam: Resting ECG Reason for Exam: HTN Patient Location: O HR:60 bpm ECG Measurements Heart Rate 60 AXIS WA 144 P 23 QRSd 81 QRS 1 QT 446 T 21 QTc 446 Conclusion Sinus rhythm...normal P axis, V-rate 50- 99 Left atrial enlargement...P, P'>60mS, <-0.15mV V1
== END 2021-09-01 09:28 | disposition home or self-care (01) ==
LOC: DI.CARD 09:27
PROVIDERS: PCP Nurse Practitioner; Visit Provider Internal Medicine Cardiovascular Disease
DX: I10 Essential (primary) hypertension (principal); I34.0 Nonrheumatic mitral (valve) insufficiency
CPT/HCPCS: 93010

== ENCOUNTER → 2021-09-01 13:49 | Outpatient (BNVA) | payer MEDICARE, SELFPAY | PROVIDERS: PCP Nurse Practitioner; Referring Provider Nurse Practitioner; Visit Provider Internal Medicine Cardiovascular Disease | DX: I34.0 Nonrheumatic mitral (valve) insufficiency (principal); I10 Essential (primary) hypertension; I48.0 Paroxysmal atrial fibrillation; E78.49 Other hyperlipidemia | CPT/HCPCS: 93005; 99203; 99214 ==

== ENCOUNTER 2021-10-22 15:58 | Outpatient (CLI) | payer MEDICARE, SELFPAY | END 2021-10-22 15:59 | LOC: CARDO 10-26 08:50 | PROVIDERS: PCP Nurse Practitioner; Referring Provider Internal Medicine; Visit Provider Internal Medicine Cardiovascular Disease | DX: I48.91 Unspecified atrial fibrillation (principal); I47.1 Supraventricular tachycardia | CPT/HCPCS: 93272 ==

== ENCOUNTER → 2022-01-11 01:37 | Outpatient (CLI) | payer MEDICARE, SELFPAY ==
--- NOTE | 2022-01-11 08:00 | DI.RAD_ITS ---
Exam(s) XR CHEST 2V PA LATERAL EXAM: XR CHEST 2V PA LATERAL CLINICAL HISTORY: f/u PREVIOUS CXR,H/O SMOKER,ATRIAL FIBRILLATION,I48.0,Z87.891 TECHNIQUE: 2D digital imaging was performed. COMPARISON: CR,XR XR PORTABLE CHEST AP from 07/05/2021 CT,NM,TMT NM MPI REST STRESS GRP from 07/14/2021 FINDINGS: HEART: Normal size. Heavy mitral annular calcification. Calcification seen on prior chest x-ray cor responds to mitral annular calcification. This is visible on the CT images from the recent MPI exam. Aorta: Mildly tortuous. PULMONARY VASCULATURE: Normal. LUNGS: Clear. PLEURAL SPACE: No pleural effusion or pneumothorax. BONE:Unremarkable for age. IMPRESSION: No acute abnormality. DATA REPOSITORY: RADIATION DOSE DELIVERED:
== END ==
PROVIDERS: PCP Nurse Practitioner; Visit Provider Nurse Practitioner
DX: I48.0 Paroxysmal atrial fibrillation (principal); Z87.891 Personal history of nicotine dependence
CPT/HCPCS: 71046

== ENCOUNTER 2022-02-01 15:58 | Emergency (ER) | payer MEDICARE, SELFPAY ==
[2022-02-01] VITALS (16 sets, daily range): BP systolic 149–223; BP diastolic 56–96; PULSE 57–83; RESP 10–18; TEMP 36.7; O2SAT 98
--- NOTE | 2022-02-01 16:15 | RT.EKG_ITS ---
APPROVED REPORT Exam: Resting ECG Reason for Exam: high blood pressure Patient Location: E HR:61 bpm ECG Measurements Heart Rate 61 AXIS NC 135 P 22 QRSd 85 QRS -8 QT 420 T 12 QTc 422 Conclusion Sinus rhythm...normal P axis, V-rate 60- 99 Left atrial enlargement...P, P'>60mS, <-0.15mV V1 sinus rhythm, normal axis, non ischemic
--- NOTE | 2022-02-01 16:30 | DI.RAD_ITS ---
Exam(s) XR CHEST 2V PA LATERAL EXAM: XR CHEST 2V PA LATERAL CLINICAL HISTORY: htn TECHNIQUE: 2D digital imaging was performed of the chest. Two images were obtained. PA and lateral views were obtained. COMPARISON: CR XR CHEST 2V PA LATERAL from 01/11/2022 FINDINGS: MEDIASTINUM: Normal. HEART: Within normal limits in size. Mitral valve calcifications are present. PULMONARY VASCULATURE: Normal. LUNGS: Clear. PLEURAL SPACE: No pleural effusion or pneumothorax. BONE:Within normal limits for the patient's age. OTHER FINDINGS:Normal. IMPRESSION: No acute pulmonary findings. DATA REPOSITORY: RADIATION DOSE DELIVERED:
[2022-02-01 16:42] LABS: Abs Immature Grans 0.02 10^3/uL (0.0-0.06); Absolute Basophil Count 0.04 10^3/uL (0.0-0.2); Absolute Eosinophil Count 0.12 10^3/uL (0.0-0.7); Absolute Lymphocyte Count 2.04 10^3/uL (1.2-3.4); Absolute Monocyte Count 0.63 10^3/uL (0.1-0.8); Basophils % 0.5; Eosinophils % 1.6; HCT 40.6 % (36.0-46.0); HGB 13.9 g/dL (11.2-15.7); Immature Grans % 0.3; Lymphocytes % 27.8; MCH 31.6 pg (27.0-33.0); MCHC 34.2 % (32.0-36.0); MCV 92 fL (80-95); MPV 9.8 fL (8.0-11.0); Monocytes % 8.6; Neutrophils % 61.2; Platelet Count 242 10^3/uL (130-400); WBC 7.35 10^3/uL (4.4-10.8)
[2022-02-01 17:05] LABS: ALT 35 U/L (14-59); AST 31 U/L (15-37); Albumin 4.3 g/dL (3.4-5.0); Alkaline Phosphatase 63 U/L (46-116); Anion Gap 9.5 mmol/L (3-11); BUN 18 mg/dL (7-18); Bilirubin, Total 0.8 mg/dL (0.2-1.0); CO2 30.5 mmol/L (21.0-32.0); Calcium 9.8 mg/dL (8.5-10.1); Chloride 103 mmol/L (98-107); Estimated GFR 58.75 (mL/min/1.73m2); Glucose 147 mg/dL (74-106); Lipase 128 U/L (73-393); Potassium 3.4 mmol/L (3.5-5.1); Sodium 143 mmol/L (136-145); TSH (W/Ref FT4) 2.42 uIU/mL (0.36-3.74); Total Protein 8.3 g/dL (6.4-8.2)
[2022-02-01] MEDS: hydrALAZINE 20 MG/ML VIAL 10 MG IVP (17:32)
--- NOTE | 2022-02-01 17:32 | W.ED.GENAD ---
Discharge Plan Disposition Patient Disposition: Home Condition: Improving Discharge Details Clinical Impression: Hypertension Primary Care Provider: Yvonne Gutierrez ED Provider: Terry Dia Home Meds and New Rx's Prescriptions: Continued cholecalciferol (vitamin D3) 125 mcg (5,000 unit) capsule 125 mcg PO DAILY metoprolol succinate 50 mg tablet extended release 24 hr 50 mg PO DAILY Qty: 90 3RF atorvastatin 20 mg tablet 20 mg PO QPM Qty: 90 3RF diltiazem HCl [Cardizem CD] 120 mg capsule,extended release 24hr 120 mg PO HS Qty: 90 3RF calcium carbonate-vitamin D3 [Oyster Shell + D3] 1 EACH tablet 1 ea PO DAILY Eliquis 5 mg tablet 5 mg PO BID Qty: 180 3RF lisinopril 10 mg tablet 30 mg PO DAILY Rx Instructions: 3 tab daily and monitor BPs. Increase to 3 tabs daily after 1 week if BPs remain elevated. Discharge Instructions Instructions: Hypertension (ED) Additional Instructions: Your work-up in the ER does not reveal any obvious emergent process and your blood pressure has responded nicely to the single dose of IV medications. Please continue taking all of your medications as directed. Watch for new or worsening symptoms and return to the ER for any concerns. Lastly, I would like you to contact your primary care provider tomorrow to discuss your ER visit, ongoing symptoms, and need for outpatient reevaluation. You may need to change your medication regimen. Medical Decision Making 76-year-old female presents to the ER complaining of asymptomatic hypertension. Clinically she appears well, nontoxic, blood pressure is 223/71. Denies headache, visual changes, chest pain, shortness of breath, etc. She reports that she and her primary care provider have been working on her high blood pressure for quite some time with multiple increases of her medications. She does admit to whitecoat syndrome. Simply leaving the exam room, her blood pressure does not decrease without any additional intervention although still quite high. Plan is to initiate a cardiac work-up, a single troponin and EKG, and given she is already on a beta-roberto and calcium channel roberto, heart rate in the 60s, will provide 1 dose IV hydralazine. Work-up in the ER is unremarkable for any obvious emergent process. She remains asymptomatic. Blood pressure has responded nicely with the single dose of IV medication. Simply upon reentering the room and talking with the patient her blood pressure increases. Without any additional dose of medication, I left the room and soon after her blood pressure once again improved 151/69. She remains asymptomatic. At this time I see no clear indication for further work-up or evaluation here in the ER. I strongly recommend that she contact her primary care provider tomorrow to discuss her ongoing hypertension and likely need for medication change for better control. Strict discharge and return precautions were provided. Patient understands, is agreeable to this plan, and has no additional questions or concerns upon discharge. This documentation was generated using [employer] system, please disregard any oddities of phrase or misspellings. Medical Records Medical records reviewed: Yes I reviewed the patient's medical records. Imaging Data Radiologic Study: Attestation: I personally reviewed and interpreted this imaging study as follows: Imaging: X-Ray Radiologist's impression: PROCEDURE INFORMATION: Exam: XR Chest Exam date and time: 02/01/2022 5:23 PM Age: 76 years old Clinical indication: Cough TECHNIQUE: Imaging protocol: Radiologic exam of the chest. Views: 2 views. COMPARISON: CR XR CHEST 2V PA LATERAL 01/11/2022 7:54 AM FINDINGS: Lungs: No consolidation. Pleural spaces: Unremarkable. No pleural effusion. No pneumothorax. Heart/Mediastinum: Dense mitral annular calcification is again seen. The cardiomediastinal silhouette is within normal limits for size. Bones/joints: Degenerative osseous changes. IMPRESSION: No actue findings. Lab Data Lab results reviewed: Yes I reviewed the patient's lab results. Labs: 02/01/22 17:26 Urine - Reflex from Ua Urine Culture - Pending Laboratory Tests Range/Units 02/01/22 02/01/22 02/01/22 16:18 16:18 17:26 WBC (4.4-10.8) 10^3/uL 7.35 RBC (3.93-5.22) 10^6/uL 4.40 Hgb (11.2-15.7) g/dL 13.9 Hct (36.0-46.0) % 40.6 MCV (80-95) fL 92 MCH (27.0-33.0) pg 31.6 MCHC (32.0-36.0) % 34.2 RDW (11.7-14.6) % 13.0 Plt Count (130-400) 10^3/uL 242 MPV (8.0-11.0) fL 9.8 Immature Gran % 0.3 Neutrophils % 61.2 Lymphocytes % 27.8 Monocytes % 8.6 Eosinophils % 1.6 Basophils % 0.5 Nucleated RBC % (0.0-0.3) % 0.0 Absolute Neutrophils (1.2-6.7) 10^3/uL 4.50 Absolute Lymphocytes (1.2-3.4) 10^3/uL 2.04 Absolute Monocytes (0.1-0.8) 10^3/uL 0.63 Absolute Eosinophils (0.0-0.7) 10^3/uL 0.12 Absolute Basophils (0.0-0.2) 10^3/uL 0.04 Sodium (136-145) mmol/L 143 Potassium (3.5-5.1) mmol/L 3.4 L Chloride (98-107) mmol/L 103 Carbon Dioxide (21.0-32.0) mmol/L 30.5 Anion Gap (3-11) mmol/L 9.5 BUN (7-18) mg/dL 18 Creatinine (0.55-1.02) mg/dL 1.0 Est GFR (CKD-EPI 2020) (mL/min/1.73m2) 58.75 Glucose (74-106) mg/dL 147 H Calcium (8.5-10.1) mg/dL 9.8 Total Bilirubin (0.2-1.0) mg/dL 0.8 AST (15-37) U/L 31 ALT (14-59) U/L 35 Alkaline Phosphatase (46-116) U/L 63 Total Protein (6.4-8.2) g/dL 8.3 H Albumin (3.4-5.0) g/dL 4.3 Lipase (73-393) U/L 128 TSH (0.36-3.74) uIU/mL 2.42 Urine Color (Yellow) Yellow Urine Clarity (Clear) Clear Urine pH (5-8) 7.0 Ur Specific [place] (1.005-1.025) 1.020 Urine Protein (Negative) mg/dL Negative Urine Ketones (Negative) mg/dL Negative Urine Blood (Negative) Trace-intact H Urine Nitrite (Negative) Negative Urine Bilirubin (Negative) Negative Urine Urobilinogen (Up TO 0.2) EU/dL 0.2 Ur Leukocyte Esterase (Negative) Trace H Urine RBC (0-2) HPF 0-2 Urine WBC (0-5) HPF 0-2 Ur Epithelial Cells (Negative) HPF Rare Urine Crystals (Negative) HPF Negative Urine Bacteria (Negative) HPF Negative Urine Casts (Negative) LPF Negative Urine Mucus (Negative) Negative Ur Culture Indicated? Yes Urine Glucose (Negative) mg/dL Negative ECG Data Attestation: I personally reviewed and interpreted this ECG (s) as follows: Interpretation: Sinus rhythm, ventricular rate of 61, no STEMI. Sign Out No HPI General Mode of arrival: ambulatory. Date/Time Provider Initiated Documentation: 02/01/22 16:12. Limitations to Documentation: no limitations. Information obtained by: patient and family. HPI Narrative: This is a 76-year-old female with a past medical history of proximal atrial fibrillation, mitral valve regurgitation, hypertension, presenting to the ER for evaluation of ongoing uncontrolled hypertension. She states that she and her primary care provider have been working on this for quite some time and they had placed her on lisinopril on top of her diltiazem and metoprolol. They have subsequently increased her lisinopril dose two additional times. Patient states that she has been checking her blood pressure fairly frequently, multiple times today, blood pressure notably elevated in the 180s over 90s, contacted her PCP and they sent to the ER for evaluation. Patient reports that she has been taking all of her medications as directed. She has no acute concerns or complaints. Denies headache, visual changes, neck pain, chest pain, abdominal pain, nausea, vomiting, numbness, tingling, weakness, change in bowel or bladder function. Related Data Home Medications Medication Instructions Recorded Confirmed calcium carbonate 250 mg-vitamin 1 ea PO DAILY 08/14/15 02/01/22 D3 3.125 mcg (125 unit) tablet (Oyster Shell + D3) cholecalciferol (vitamin D3) 125 125 mcg PO DAILY 02/19/21 02/01/22 mcg (5,000 unit) capsule apixaban 5 mg tablet (Eliquis) 5 mg PO BID #180 tabs 11/03/21 02/01/22 atorvastatin 20 mg tablet 20 mg PO QPM #90 tabs 12/07/21 02/01/22 metoprolol succinate 50 mg 50 mg PO DAILY #90 tabs 12/07/21 02/01/22 tablet,extended release 24 hr diltiazem HCl 120 mg 120 mg PO HS #90 caps 01/19/22 02/01/22 capsule,extended release 24 hr (Cardizem CD) lisinopril 10 mg tablet 30 mg PO DAILY 02/01/22 02/01/22 Previous Rx's Medication Instructions Recorded apixaban 5 mg tablet (Eliquis) 5 mg PO BID #180 tabs 11/03/21 atorvastatin 20 mg tablet 20 mg PO QPM #90 tabs 12/07/21 metoprolol succinate 50 mg 50 mg PO DAILY #90 tabs 12/07/21 tablet,extended release 24 hr diltiazem HCl 120 mg 120 mg PO HS #90 caps 01/19/22 capsule,extended release 24 hr (Cardizem CD) Allergies Allergy/AdvReac Type Severity Reaction Status Date / Time No Known Allergies Allergy Verified 02/01/22 16:08 General Stated Complaint: GenMedical ED: 3 Review of Systems Constitutional Constitutional: Denies fever(s), Denies headache(s) and Denies weakness Eyes Eyes: Denies change in vision ENT Ears, Nose, Mouth, and Throat: Denies headache(s) and Denies neck pain Cardiovascular Cardiovascular: Denies chest pain and Denies dyspnea Respiratory Respiratory: Denies cough and Denies dyspnea Gastrointestinal Gastrointestinal: Denies abdominal pain, Denies nausea and Denies vomiting Musculoskeletal Musculoskeletal: Denies back pain and Denies neck pain Integumentary/Breasts Skin/Breast: Denies rash Neurologic Neurologic: Denies headache(s) and Denies weakness Hematologic/Lymphatic Hematologic/Lymphatic: Reports easy bleeding and Reports easy bruising PFSH All Active Problems Paroxysmal atrial fibrillation (Acute) Osteopenia of lumbar spine (Acute) Medicare annual wellness visit, subsequent (Acute) Other hyperlipidemia (Acute 06/26/05) GOAL LDL<130; 2015 risk calc 12.3%; ASA and Atorvastatin begun 08/2014 Osteopenia (Acute 10/04/14) DEXA 10/03/14 T = -2.7 L wrist, all others 0.7 or better; FRAX score: 8 phil, 0.6 hip Mitral valve regurgitation (Acute 06/04/13) mod on ECHO 06/24/10; rpt 07/03/13: mild MR, nl EF 65% Hypertension (Acute 12/29/91) Hyperplastic colonic polyp (Acute 01/02/16) dr Velazquez Other and unspecified hyperlipidemia (Acute 06/26/05) GOAL LDL<130; 2015 risk calc 12.3% Colon cancer screening (Acute) Medical History Elevated troponin HTN (hypertension) Hx of hyperlipidemia Vitiligo (06/01/11) Surgical History Colonoscopy - IV Sedation (01/02/16) No significant past surgical history Family History Mother , heart issues at age 86. Essential hypertension Heart disease Anxiety Father , CVA at age 70. Stroke Hypertension Social History Smoking/Tobacco Use Status: Former Tobacco Use Tobacco: How many years used: 25 Second Hand Exposure: No Smoking risk assessment performed?: Yes Alcohol Intake: current Alcohol Intake frequency: 0-2 drinks per day Drug use: Never Substance use type: does not use Adopted: No Caregiver/Support person: No Foster care: No Household members: spouse Housing: house Number of Children: 2 number of grandchildren: 4 Communication Needs: Corrective Lenses Education Level: college Do you need help understanding health information?: Rarely current occupation: retired Pets and animals: No Sexually active: No Do you think of yourself as: straight/heterosexual Current gender identity: female What is your relationship status?: living with partner How often do you talk on the phone with friends or family?: twice per week How often do you get together with friends or relatives?: three or more times per week Do you belong to any clubs or organized social groups?: yes Panel score (0-1 are the most socially isolated patients): 3 What type of physical activity do you participate in: walking Duration: 15-30 minutes/day Frequency: 5-6 times per week Padmini/Zoroastrian: Taoist Seatbelt use: always Drive intox or ride w/intox milk tanker driver: No Working smoke detector in home: Yes Fire extinguisher in home: Yes Carbon monox detector in home: Yes Do you feel safe at home: Yes Do you feel safe in your relationship?: Yes Exam Const General: cooperative, healthy appearing, comfortable and no acute distress Orientation: alert, awake and oriented x3 HENMT Head: normal to inspection, normocephalic and atraumatic Face and sinus: normal facial exam Mouth: moist mucous membranes Throat: posterior oropharynx normal Eyes General: appearance normal, both eyes and all related structures Conjunctivae: conjunctivae normal Neck Neck: normal visual inspection, full ROM, no meningeal signs, trachea midline and supple Resp Effort & Inspection: normal respiratory effort and able to speak in complete sentences Auscultation: clear to auscultation bilaterally Cardio Rate: regular rate Rhythm: regular rhythm GI Palpation: soft and nontender Back/Spine/Pelvis Back: no CVA tenderness and No back tenderness Skin General skin exam: no rashes or lesions noted Neuro General: patient alert, patient awake, patient oriented x3, moves all extremities and no focal motor deficits Cognition: normal cognition Speech: speech normal Gait: normal gait Motor: muscle tone normal throughout Sensory Exam: no sensory deficits noted Extrem General: normal to inspection, full ROM, capillary refill normal, no pedal edema and no calf tenderness Psych Appearance: grossly normal Mental Status: mental status grossly normal Course Vital Signs Vital signs: Vital Signs Temperature 36.7 C 02/01/22 16:04 Pulse 75 02/01/22 16:04 Respiratory Rate 18 02/01/22 16:04 Blood Pressure 223/71 H 02/01/22 16:04 Pulse Oximetry 98 02/01/22 16:04 Temperature 36.7 C 02/01/22 16:04 Temperature Source Oral 02/01/22 16:04 Pulse 75 02/01/22 16:04 Respiratory Rate 16 02/01/22 16:08 Respiratory Effort Non-Labored 02/01/22 16:08 Respiratory Depth Normal 02/01/22 16:08 Respiratory Pattern Normal 02/01/22 16:08 Blood Pressure 223/71 H 02/01/22 16:04 Blood Pressure Position Sitting 02/01/22 16:04 Pulse Oximetry 98 02/01/22 16:04 Oxygen Delivery Method Room Air 02/01/22 16:04 Oxygen Flow Rate 0 02/01/22 16:04 Pain Level 0 02/01/22 16:04 Lab/Test Results Lab/Test Results: Laboratory Tests Range/Units 02/01/22 02/01/22 16:18 16:18 WBC (4.4-10.8) 10^3/uL 7.35 RBC (3.93-5.22) 10^6/uL 4.40 Hgb (11.2-15.7) g/dL 13.9 Hct (36.0-46.0) % 40.6 MCV (80-95) fL 92 MCH (27.0-33.0) pg 31.6 MCHC (32.0-36.0) % 34.2 RDW (11.7-14.6) % 13.0 Plt Count (130-400) 10^3/uL 242 MPV (8.0-11.0) fL 9.8 Immature Gran % 0.3 Neutrophils % 61.2 Lymphocytes % 27.8 Monocytes % 8.6 Eosinophils % 1.6 Basophils % 0.5 Nucleated RBC % (0.0-0.3) % 0.0 Absolute Neutrophils (1.2-6.7) 10^3/uL 4.50 Absolute Lymphocytes (1.2-3.4) 10^3/uL 2.04 Absolute Monocytes (0.1-0.8) 10^3/uL 0.63 Absolute Eosinophils (0.0-0.7) 10^3/uL 0.12 Absolute Basophils (0.0-0.2) 10^3/uL 0.04 Sodium (136-145) mmol/L 143 Potassium (3.5-5.1) mmol/L 3.4 L Chloride (98-107) mmol/L 103 Carbon Dioxide (21.0-32.0) mmol/L 30.5 Anion Gap (3-11) mmol/L 9.5 BUN (7-18) mg/dL 18 Creatinine (0.55-1.02) mg/dL 1.0 Est GFR (CKD-EPI 2020) (mL/min/1.73m2) 58.75 Glucose (74-106) mg/dL 147 H Calcium (8.5-10.1) mg/dL 9.8 Total Bilirubin (0.2-1.0) mg/dL 0.8 AST (15-37) U/L 31 ALT (14-59) U/L 35 Alkaline Phosphatase (46-116) U/L 63 Total Protein (6.4-8.2) g/dL 8.3 H Albumin (3.4-5.0) g/dL 4.3 Lipase (73-393) U/L 128 TSH (0.36-3.74) uIU/mL 2.42 PAWSS Have you Been Recently Intoxicated or Drunk Within the Last 30 days?: No Have you Ever Experienced Previous Episodes of Alcohol Withdrawal?: No Have you ever Experienced Withdrawal Seizures?: No Have you ever Experienced Delirium Tremens(DT)s?: No Have you ever undergone Alcohol Rehabilitation Treatment (i.e, inpt ot outpatient treatment programs)?: No Have you ever Experienced Blackouts?: No Have you ever Combined Alcohol with other Downers within the last 90 days?: No Have you ever Combined Alcohol with any other Substance of Abuse during the last 90 days?: No Result: 0
--- NOTE | 2022-02-01 17:35 | DI.VRAD_ITS ---
PROCEDURE INFORMATION: Exam: XR Chest Exam date and time: 02/01/2022 5:23 PM Age: 76 years old Clinical indication: Cough TECHNIQUE: Imaging protocol: Radiologic exam of the chest. Views: 2 views. COMPARISON: CR XR CHEST 2V PA LATERAL 01/11/2022 7:54 AM FINDINGS: Lungs: No consolidation. Pleural spaces: Unremarkable. No pleural effusion. No pneumothorax. Heart/Mediastinum: Dense mitral annular calcification is again seen. The cardiomediastinal silhouette is within normal limits for size. Bones/joints: Degenerative osseous changes. IMPRESSION: No actue findings. Dictated and Authenticated by: Williams Tan MD. Ordering:RY Stewart MD
[2022-02-01 18:18] LABS: Bilirubin Negative (Negative); Blood Trace-intact (Negative); Clarity Clear (Clear); Glucose Negative (Negative); Ketones Negative (Negative); Leukocyte Esterase Trace (Negative); Nitrite Negative (Negative); Urobilinogen 0.2 EU/dL (Up TO 0.2)
[2022-02-01 18:25] LABS: Bacteria Negative HPF (Negative); C & S Indicated? Yes; Casts Negative LPF (Negative); Crystals Negative HPF (Negative); Epithelial Cells Rare HPF (Negative); Mucus Negative (Negative); RBC 0-2 HPF (0-2); WBC 0-2 HPF (0-5)
== END 2022-02-01 18:27 | disposition home or self-care (01) ==
PROVIDERS: Emergency Provider Physician Assistant; PCP Nurse Practitioner
DX: I48.0 Paroxysmal atrial fibrillation; Z79.01 Long term (current) use of anticoagulants; I10 Essential (primary) hypertension; Z79.899 Other long term (current) drug therapy
CPT/HCPCS: 36415; 80053; 83690; 93005; 96374; 96375; 99284; 71046; 81003; 81015; 84443; 85025; 87086; 93010; 99285; J0360

== ENCOUNTER 2022-06-02 03:24 | Outpatient (CLI) | payer MEDICARE, SELFPAY ==
[2022-06-02 08:17] LABS: ALT 28 U/L (14-59); AST 24 U/L (15-37); Albumin 3.7 g/dL (3.4-5.0); Alkaline Phosphatase 52 U/L (46-116); Anion Gap 7.4 mmol/L (3-11); BUN 16 mg/dL (7-18); Bilirubin, Total 0.8 mg/dL (0.2-1.0); CO2 30.6 mmol/L (21.0-32.0); CREATININE 1.2 mg/dL (0.55-1.02); Calcium 9.3 mg/dL (8.5-10.1); Calculated LDL 62 mg/dL (<100); Chloride 109 mmol/L (98-107); Cholesterol 160 mg/dL (<200); Estimated GFR 46.91 (mL/min/1.73m2); Glucose 103 mg/dL (74-106); HDL Cholesterol 78 mg/dL (40-60); Potassium 3.9 mmol/L (3.5-5.1); Sodium 147 mmol/L (136-145); Total Protein 7.4 g/dL (6.4-8.2); Triglyceride 102 mg/dL (<150)
== END 2022-06-02 03:25 | disposition home or self-care (01) ==
LOC: LBO 03:24
PROVIDERS: PCP Nurse Practitioner; Referring Provider Nurse Practitioner; Visit Provider Nurse Practitioner
DX: E78.5 Hyperlipidemia, unspecified (principal); I10 Essential (primary) hypertension
CPT/HCPCS: 36415; 80053; 80061

== ENCOUNTER 2022-06-28 01:54 | Outpatient (CLI) | payer MEDICARE, SELFPAY ==
--- NOTE | 2022-06-28 08:10 | DI.MAMMO_ITS ---
Exam(s) MAMMO SCREENING EXAM: MAMMO SCREENING CLINICAL HISTORY: screening,Z12.39 TECHNIQUE: Bilateral full field digital CC and MLO mammographic images were obtained with 3D tomosyn thesis and utilizing computer aided detection (CAD). COMPARISON: Available for comparison. FINDINGS: Masses/Architectural Distortion: None seen. There is a stable biopsy clip in the medial right breast. Microcalcifications: No suspicious pleomorphic-type are seen. Stable benign type calcifications are s een in both breasts. Skin Thickening/Nipple Retraction: None. IMPRESSION: 1. No significant interval change with no specific features of malignancy noted. 2. Unless there is more urgent need, screening mammography is recommended, as per [employer] guidelines. BI-RADS Category 2 - Benign Findings Breast Density - Category B - Scattered areas of fibroglandular density Breast density category C or D implies that the patient has dense breast tissue. Dense breast tissue is very common and is not abnormal but dense breast tissue can make it harder to find cancer on a ma mmogram. Also, dense breast tissue may increase their breast cancer risk. This information about the result of the mammogram report was provided to the patient to raise their awareness. Use this report when you speak with the patient about their risks for breast cancer, which includes their family hist ory. At that time, you may recommend for more screening tests (Ultrasound or MRI) as they might be us eful based on their risk. A negative radiographic report should not delay biopsy if a dominant or clinically suspicious mass is present. Up to ten percent of cancers are not identified on mammography. A negative report may reinforce clinical impression. Adenosis and dense breasts may obscure an underlying neoplasm. False positive reports average 6 to 10%. Patient will receive a letter notifying them of these results.
== END 2022-06-28 02:14 ==
LOC: DI 01:56
PROVIDERS: PCP Nurse Practitioner; Visit Provider Nurse Practitioner
DX: Z12.31 Encounter for screening mammogram for malignant neoplasm of breast (principal)
CPT/HCPCS: 77063; 77067

== ENCOUNTER 2022-08-02 03:25 | Outpatient (CLI) | payer MEDICARE, SELFPAY ==
[2022-08-02 09:10] LABS: Hemoglobin A1C 5.3 % (<5.7)
[2022-08-02 09:39] LABS: Anion Gap 6.6 mmol/L (3-11); BUN 11 mg/dL (7-18); CO2 31.4 mmol/L (21.0-32.0); CREATININE 0.9 mg/dL (0.55-1.02); Calcium 9.5 mg/dL (8.5-10.1); Chloride 104 mmol/L (98-107); Estimated GFR 66.26 (mL/min/1.73m2); Glucose 74 mg/dL (74-106); Potassium 3.5 mmol/L (3.5-5.1); Sodium 142 mmol/L (136-145)
== END 2022-08-02 03:26 | disposition home or self-care (01) ==
LOC: LBO 03:25
PROVIDERS: PCP Nurse Practitioner; Referring Provider Nurse Practitioner; Visit Provider Nurse Practitioner
DX: R79.9 Abnormal finding of blood chemistry, unspecified (principal); R73.01 Impaired fasting glucose
CPT/HCPCS: 36415; 80048; 83036

== ENCOUNTER 2023-06-20 05:00 | Outpatient (CLI) | payer MEDICARE, SELFPAY ==
[2023-06-20 08:22] LABS: ALT 34 U/L (14-59); AST 23 U/L (15-37); Albumin 3.7 g/dL (3.4-5.0); Alkaline Phosphatase 57 U/L (46-116); Anion Gap 7.7 mmol/L (3-11); BUN 13 mg/dL (7-18); Bilirubin, Total 0.4 mg/dL (0.2-1.0); CO2 29.3 mmol/L (21.0-32.0); Calcium 9.5 mg/dL (8.5-10.1); Calculated LDL 73 mg/dL (<100); Chloride 108 mmol/L (98-107); Cholesterol 170 mg/dL (<200); Estimated GFR 58.02 (mL/min/1.73m2); Glucose 107 mg/dL (74-106); HDL Cholesterol 79 mg/dL (40-60); Potassium 4.5 mmol/L (3.5-5.1); Sodium 145 mmol/L (136-145); Total Protein 7.1 g/dL (6.4-8.2); Triglyceride 90 mg/dL (<150)
== END 2023-06-20 05:01 | disposition home or self-care (01) ==
LOC: LBO 05:00
PROVIDERS: PCP Nurse Practitioner; Referring Provider Nurse Practitioner; Visit Provider Nurse Practitioner
DX: E78.49 Other hyperlipidemia (principal); I10 Essential (primary) hypertension
CPT/HCPCS: 36415; 80053; 80061

== ENCOUNTER → 2023-07-12 01:33 | Outpatient (CLI) | payer MEDICARE, SELFPAY ==
--- NOTE | 2023-07-12 06:30 | DI.MAMMO_ITS ---
Exam(s) MAMMO SCREENING EXAM: MAMMO SCREENING CLINICAL HISTORY: screening,z12.39. TECHNIQUE: Bilateral full field digital CC and MLO mammographic images were obtained with 3D tomosyn thesis and utilizing computer aided detection (CAD). COMPARISON: Prior mammograms were reviewed. FINDINGS: There has been no significant change in the appearance and distribution of the fibroglandular tissue. There are no new findings in the immediate vicinity of the biopsy marker clip in the right breast loc ated medially. There are no new spiculated masses nor malignant appearing microcalcification groups. There is no significant architectural distortion nor skin thickening-retraction. IMPRESSION: No radiographic evidence of malignancy. BI-RADS Category 2 - Benign Findings Breast Density - Category B - Scattered areas of fibroglandular density Breast density Category C or D implies that the patient has dense breast tissue. Dense breast tissue can make it harder to find cancer on a mammogram. Dense breast tissue is also associated with an incr eased risk of breast cancer. This information about the result of the mammogram report was provided to the patient to raise their awareness. Use this report when you speak with the patient about their risks for breast cancer, which includes their family history. At that time, you may recommend additional screening tests (Ultrasoun d or MRI) as these tests may add significant information. A negative radiographic report should not delay biopsy if a dominant or clinically suspicious mass is present. Up to ten percent of cancers are not identified on mammography. A negative report may reinforce clinical impression. Adenosis and dense breasts may obscure an underlying neoplasm. False positive reports average 6 to 10%. Patient will receive a letter notifying them of these results.
== END ==
PROVIDERS: PCP Nurse Practitioner; Visit Provider Nurse Practitioner
DX: Z12.31 Encounter for screening mammogram for malignant neoplasm of breast (principal)
CPT/HCPCS: 77063; 77067

== ENCOUNTER 2024-08-16 00:32 | Outpatient (CLI) | payer MEDICARE, SELFPAY ==
--- NOTE | 2024-08-16 06:30 | DI.MAMMO_ITS ---
Exam(s) MAMMO SCREENING EXAM: MAMMO SCREENING CLINICAL HISTORY: screening,z12.39 TECHNIQUE: Bilateral full field digital CC and MLO mammographic images were obtained with 3D tomosynthesis and utilizing computer aided detection (CAD). COMPARISON: Comparison is made with prior examinations. FINDINGS: Masses/Architectural Distortion: No suspicious masses or areas of architectural distortion are present. There is increased prominence of area of asymmetry in the upper left breast on the MLO view. This may be overlying fibroglandular tissue. There is again seen a biopsy clip in the medial right breast. Microcalcifications: No suspicious pleomorphic-type are seen. Stable benign type calcifications are seen in both breasts. Skin Thickening/Nipple Retraction: None. IMPRESSION: 1. There is an area of increased prominence in the upper left breast on the MLO view. 2. This area should be further evaluated with a spot compression view. Ultrasound may be indicated at that time. BI-RADS Category 0 - Incomplete: Need additional imaging evaluation Breast Density - Category B - There are scattered areas of fibroglandular density. Breast density Category C or D implies that the patient has dense breast tissue. Dense breast tissue can make it harder to find cancer on a mammogram. Dense breast tissue is also associated with an increased risk of breast cancer. This information about the result of the mammogram report was provided to the patient to raise their awareness. Use this report when you speak with the patient about their risks for breast cancer, which includes their family history. At that time, you may recommend additional screening tests (Ultrasound or MRI) as these tests may add significant information. A negative radiographic report should not delay biopsy if a dominant or clinically suspicious mass is present. Up to ten percent of cancers are not identified on mammography. A negative report may reinforce clinical impression. Adenosis and dense breasts may obscure an underlying neoplasm. False positive reports average 6 to 10%. Patient will receive a letter notifying them of these results.
== END 2024-08-16 00:52 ==
PROVIDERS: PCP Family Medicine; Visit Provider Family Medicine
DX: Z12.31 Encounter for screening mammogram for malignant neoplasm of breast (principal); R92.323 Mammographic fibroglandular density, bilateral breasts
CPT/HCPCS: 77063; 77067

== ENCOUNTER 2024-08-21 02:05 | Outpatient (CLI) | payer MEDICARE, SELFPAY ==
--- NOTE | 2024-08-21 15:19 | DI.MAMMO_ITS ---
Exam(s) MAMMO SCREEN CALL BACK UNI EXAM: MAMMO SCREEN CALL BACK UNI CLINICAL HISTORY: F/U ABNL MAMMO, AREA INC PROMINENCE UPPER LT BREAST, R92.8 TECHNIQUE: ML and MLO spot compression views with tomographic imaging were performed of the superior left breast. COMPARISON: 2014 through recent exam of 16 August 2024 FINDINGS: No suspicious masses or suspicious microcalcifications are seen. No persistent abnormality is seen on the additional views performed. The findings are consistent with overlying fibroglandular tissue. There has been no significant change from prior exams. IMPRESSION: BI-RADS Category 1, Negative Yearly screening mammography is recommended. Breast Density - Category B - There are scattered areas of fibroglandular density. Breast density Category C or D implies that the patient has dense breast tissue. Dense breast tissue can make it harder to find cancer on a mammogram. Dense breast tissue is also associated with an increased risk of breast cancer. This information about the result of the mammogram report was provided to the patient to raise their awareness. Use this report when you speak with the patient about their risks for breast cancer, which includes their family history. At that time, you may recommend additional screening tests (Ultrasound or MRI) as these tests may add significant information. A negative radiographic report should not delay biopsy if a dominant or clinically suspicious mass is present. Up to ten percent of cancers are not identified on mammography. A negative report may reinforce clinical impression. Adenosis and dense breasts may obscure an underlying neoplasm. False positive reports average 6 to 10%. Patient will receive a letter notifying them of these results.
== END 2024-08-21 02:25 ==
LOC: DI 02:05
PROVIDERS: PCP Family Medicine; Visit Provider Family Medicine
DX: Z12.31 Encounter for screening mammogram for malignant neoplasm of breast (principal); R92.8 Other abnormal and inconclusive findings on diagnostic imaging of breast; R92.323 Mammographic fibroglandular density, bilateral breasts
CPT/HCPCS: 77063; 77067

== ENCOUNTER 2024-11-30 04:44 | Outpatient (CLI) | payer MEDICARE, SELFPAY ==
[2024-11-30 07:47] LABS: Abs Immature Grans 0.01 10^3/uL (0.0-0.06); HCT 38.4 % (36.0-46.0); HGB 12.7 g/dL (11.2-15.7); Immature Grans % 0.2 %; MCH 31.2 pg (27.0-33.0); MCHC 33.1 % (32.0-36.0); MCV 94 fL (80-95); MPV 9.5 fL (8.0-11.0); Platelet Count 219 10^3/uL (130-400); RBC 4.07 10^6/uL (3.93-5.22); RDW 12.4 % (11.7-14.6); RDW-SD 43.0 fL; WBC 5.40 10^3/uL (4.4-10.8)
[2024-11-30 07:49] LABS: Glucose Negative (Negative)
[2024-11-30 07:58] LABS: Hemoglobin A1C 5.5 % (<5.7)
[2024-11-30 08:19] LABS: C & S Indicated? No; RBC 0-2 HPF (0-2)
[2024-11-30 09:09] LABS: ALT 19 U/L (14-59); AST 20 U/L (15-37); Albumin 3.8 g/dL (3.4-5.0); Alkaline Phosphatase 52 U/L (46-116); Anion Gap 10.0 mmol/L (3-11); BUN 20 mg/dL (7-18); Bilirubin, Total 0.6 mg/dL (0.2-1.0); CO2 29.0 mmol/L (21.0-32.0); Calcium 9.2 mg/dL (8.5-10.1); Calculated LDL 69 mg/dL (<100); Chloride 105 mmol/L (98-107); Cholesterol 155 mg/dL (<200); Estimated GFR 51.43 (mL/min/1.73m2); Glucose 96 mg/dL (74-106); HDL Cholesterol 67 mg/dL (>or=50); Potassium 3.8 mmol/L (3.5-5.1); Sodium 144 mmol/L (136-145); TSH 1.84 uIU/mL (0.36-3.74); Total Protein 7.4 g/dL (6.4-8.2); Triglyceride 98 mg/dL (<150)
== END 2024-11-30 04:45 | disposition home or self-care (01) ==
LOC: LBO 04:44
PROVIDERS: PCP Nurse Practitioner; Visit Provider Family Medicine
DX: I10 Essential (primary) hypertension (principal); Z13.9 Encounter for screening, unspecified; R53.83 Other fatigue; Z13.1 Encounter for screening for diabetes mellitus; E78.5 Hyperlipidemia, unspecified
CPT/HCPCS: 36415; 80053; 80061; 81003; 81015; 83036; 84443; 85025

== ENCOUNTER → 2025-01-03 01:51 | Outpatient (CLI) | payer MEDICARE, SELFPAY ==
--- NOTE | 2025-01-03 06:30 | DI.DEXA_ITS ---
Exam(s) XR DEXA BONE DENSITY W/WO DUYEN EXAM: XR DEXA BONE DENSITY W/WO DUYEN CLINICAL HISTORY: 3 year follow up,osteopenia lumbar spine,m85.88,disorder of bone density TECHNIQUE: COMPARISON: CR XR DEXA BONE DENSITY W/WO DUYEN from 09/04/2020 FINDINGS: Lateral Spine Image: Unremarkable. No compression deformities identified. Left hip: Total T-Score: -0.2. This compares to 0.3 on the prior examination. Total Z-Score: 1.8 T- and Z-scores: Within normal limits. Lumbar Spine: Total T-Score: -0.4. This compares to -0.7 on the prior examination. Total Z-Score: 2.2 T- and Z-scores: Within normal limits. There is osteoporosis in the left forearm with a total T-score of -3.3 and a Z- score of -0.5. IMPRESSION: Osteoporosis is seen in the left forearm.
== END ==
LOC: DI 01:51
DX: M85.88 Other specified disorders of bone density and structure, other site (principal); M81.0 Age-related osteoporosis without current pathological fracture
CPT/HCPCS: 77080